=== PATIENT | female | born 1955 | race Caucasian/White ===

== ENCOUNTER 2016-06-15 07:00 | Inpatient (IN) | payer OTHER ==
[~2016-06-15] VITALS: Ht 315 cm; Wt 63.1 kg
--- NOTE | 2016-10-05 10:11 | RADRPT ---
Vent Rate: 49 bpm RR Interval: 0 msec CO Interval: 144 msec QRS Duration: 84 msec QT Interval: 478 msec QTC Interval: 431 msec P-R-T Funk: 51 - -27 - 50 degrees Marked sinus bradycardia Abnormal ECG Electronically Signed By: Domenic Marina [id number]
[2016-10-11 11:59] VITALS: BMI 25.5
[2016-10-12] VITALS (29 sets, daily range): BP systolic 85–145; BP diastolic 44–68; PULSE 46–62; RESP 10–29; BMI 23.9
[2016-10-12] MEDS ORDERED: SOD CHLORIDE 0.9% IV SCH (07:00)
[2016-10-12] MEDS ORDERED: EXPAREL NOTE (BUPIVICAINE LIPOSOMAL) XX SCH (07:00)
[2016-10-12] MEDS ORDERED: TRANEXAMIC ACID IV SCH (07:00)
[2016-10-12] MEDS ORDERED: CEFAZOLIN 1 GM INJ ONE (07:00)
[2016-10-12] MEDS ORDERED: SOD CHLORIDE 0.9% IVPB SCH (07:00)
[2016-10-12] MEDS ORDERED: BUPIVACAINE LIPOSOME/PF 266 MG/20 ML VIAL INFIL SCH (07:00)
[2016-10-12] MEDS ORDERED: TRANEXAMIC ACID IVPB SCH (07:00)
[2016-10-12] MEDS ORDERED: PAIN COCKTAIL-CEFUROXIME IRR SCH ×7 (07:00)
[2016-10-12] MEDS ORDERED: PREGABALIN 300 MG PO X1 PO SCH (07:00)
[2016-10-12] MEDS ORDERED: LACTATED RINGER'S 1,000 ML IV SCH (07:00)
[2016-10-12] MEDS ORDERED: CEFAZOLIN 2GM/50 ML (PMX) 50 ML X1 BEFORE INCISION IVPB SCH (07:00)
[2016-10-12] MEDS ORDERED: CELECOXIB 400 MG PO X1 DOSE PO SCH (07:00)
[2016-10-12] MEDS ORDERED: SPIR25TA76 PO (07:21)
[2016-10-12] MEDS ORDERED: PROP10TA6 PO (07:23)
[2016-10-12] MEDS ORDERED: ACET-141 PO (07:24)
[2016-10-12] MEDS ORDERED: FENTAnyl 50 MCG/ML VIAL ONE (08:31)
[2016-10-12] MEDS ORDERED: ROCURONIUM 50 MG INJ ONE (08:31)
[2016-10-12] MEDS ORDERED: PROPOFOL 100 ML ONE (08:31)
[2016-10-12] MEDS ORDERED: MIDAZOLAM 1 MG/ML 2 ML INJ ONE (08:31)
[2016-10-12] MEDS ORDERED: GLYCOPYRROLATE 1 MG INJ ONE (08:31)
[2016-10-12] MEDS ORDERED: LIDOCAINE 100 MG SYRINGE ONE (08:31)
[2016-10-12] MEDS ORDERED: NEOSTIGMINE 3 MG/3 ML SYRINGE ONE (08:31)
[2016-10-12] MEDS ORDERED: ONDANSETRON 4 MG INJ ONE (08:32)
[2016-10-12] MEDS ORDERED: DEXAMETHASONE 4 MG/ML 1 ML INJ ONE (08:32)
[2016-10-12] MEDS ORDERED: BACITRACIN 50000 UNITS INJ ONE (09:41)
[2016-10-12] MEDS ORDERED: SODIUM CL BACTERIOSTATIC 30 ML INJ ONE (09:55)
[2016-10-12] MEDS ORDERED: HEPARIN 1000 UNITS/ML 10 ML INJ ONE (09:55)
[2016-10-12] MEDS ORDERED: POLYMYXIN B 500000 UNIT INJ ONE (09:56)
[2016-10-12] MEDS ORDERED: VANCOMYCIN 1 GM INJ ONE (10:02)
[2016-10-12] MEDS: traMADOL 50 MG TAB X 1 DOSE PO SCH ×2 (10:08→14:53)
[2016-10-12] MEDS: oxyCODONE (CR) 10 MG TAB [oxyCONTIN] X1 DOSE PO SCH ×2 (10:08→14:52)
[2016-10-12] MEDS ORDERED: METOCLOPRAMIDE 10 MG INJ ONE (10:35)
[2016-10-12] MEDS ORDERED: MIDAZOLAM 1 MG/ML 2 ML INJ IV PRN (12:00)
[2016-10-12] MEDS ORDERED: FENTAnyl 50 MCG/ML VIAL IV PRN ×3 (12:00)
[2016-10-12] MEDS ORDERED: TRIMETHOBENZAMIDE 100 MG/ML VIAL IM PRN (12:00)
[2016-10-12] MEDS ORDERED: hydrALAzine 20 MG INJ IV PRN (12:00)
[2016-10-12] MEDS ORDERED: MEPERIDINE 25 MG INJ IV PRN (12:00)
[2016-10-12] MEDS ORDERED: DIPHENHYDRAMINE 50 MG INJ IV PRN (12:00)
[2016-10-12] MEDS ORDERED: HYDROmorphONE (0.2 MG/ML) 10ML SYG IV PRN ×3 (12:00)
[2016-10-12] MEDS ORDERED: LABETALOL HCL 20MG INJ IV PRN (12:00)
[2016-10-12] MEDS ORDERED: ONDANSETRON 4 MG INJ IV PRN (12:00)
[2016-10-12] MEDS ORDERED: EPHEDrine SULFATE 50 MG/5 ML SYG IV PRN (12:00)
--- NOTE | 2016-10-12 13:00 | RADRPT ---
PROCEDURE: Intraoperative imaging of the right hip with fluoroscopy. CLINICAL INDICATION: Right hip pain. Intraoperative. TECHNIQUE: 13 images of the right hip were obtained in the operating room with an image intensifie r. No radiologist was in attendance. 0.8 minutes of fluoroscopy time was used. COMPARISON: 10/04/2016. FINDINGS: Images demonstrate placement of a total right hip arthroplasty. IMPRESSION: 1. Satisfactory intraoperative imaging of the right hip. RPTAT: QQ .Klaus Gould MD, MD Date Time Electronically viewed and signed by .Klaus Gould MD, MD on 10/12/2016 13:00 .R/
--- NOTE | 2016-10-12 13:42 | OPPN ---
Date/Time of Note Date/Time of Note DATE: 10/12/16 TIME: 13:40 Operative/Procedure Note Dictation # [id number] Pre-Operative Diagnosis Right Hip OA Post-Operative Diagnosis Same Procedure Right Anterior GEOVANNY Surgeon: KY BENTON MD Chlorine Cell Tender: BERNARDO BOWLES PA-C Anesthesiologist: Mikal Hinton M.D. Findings Severe OA Blood Usage/Administration 200 cc autologous cell saver blood Implants/Grafts Depuy GEOVANNY Estimated blood loss: other Drains Hemovac x 1 Specimens Femoral Head Complications: None Anesthesia type: spinal KY BENTON MD Oct 12, 2016 13:42
[2016-10-12 13:59] LABS: ADD UMIC YES; URINE BILIRUBIN (Dip) NEGATIVE (NEGATIVE); URINE BLOOD (Dip) NEGATIVE (NEGATIVE); URINE COLOR LT. YELLOW (YELLOW); URINE GLUCOSE (Dip) NEGATIVE (NEGATIVE); URINE KETONES (Dip) NEGATIVE (NEGATIVE); URINE LEUKOCYTE ESTERASE (Dip) TRACE (NEGATIVE); URINE NITRITE (Dip) NEGATIVE (NEGATIVE); URINE TOTAL PROTEIN (Dip) NEGATIVE (NEGATIVE); URINE UROBILINOGEN (Dip) 0.2 E.U./dL (0.1-1.0)
[2016-10-12] MEDS ORDERED: HYDROmorphONE 1 MG/ML SYG IV PRN (14:00)
[2016-10-12] MEDS ORDERED: NA PHOSPHATE/BIPHOS 133 ML ENEMA PR PRN (14:00)
[2016-10-12] MEDS ORDERED: DIPHENHYDRAMINE 25 MG CAP PO PRN (14:00)
[2016-10-12] MEDS ORDERED: oxyCODONE 5 MG TAB PO PRN (14:00)
[2016-10-12] MEDS ORDERED: NACL 0.9% 3 ML SYG IV SCH (14:00)
[2016-10-12] MEDS ORDERED: MAGNESIUM HYDROXIDE 30ML CUP PO PRN (14:00)
[2016-10-12] MEDS ORDERED: BISACODYL 10 MG SUPP PR PRN (14:00)
--- NOTE | 2016-10-12 14:04 | PN ---
Date/Time of Note Date/Time of Note DATE: 10/12/16 TIME: 14:01 Assessment/Plan Lines/Catheters IV Catheter Type (from Nrsg): Peripheral IV Assessment/Plan Assessment/Plan Stable in PACU, s/p right anterior GEOVANNY -admit to ICU for closer monitoring secondary to blood loss -cont abx -hold ASA d/t h/o thrombocytopenia -avoid all NSAIDs and tylenol -SCDs -daily labs including CBC -OOB with PT -monitor drain closely -Dr. Danielson notified -remove mejia POD #1 XR of the right hip is pending at this time Subjective 24 Hr Interval Summary Doing well in PACU. Denies any pain. Moving all extremities. Exam/Review of Systems Vital Signs Vitals Vital Signs Date Time Temp Pulse Resp B/P Pulse Ox O2 Delivery O2 Flow Rate FiO2 10/12/16 13:48 97.9 10/12/16 07:20 56 19 127/62 100 Exam Free Text/Dictation Dressing dry Incision clean, dry, and intact without redness or drainage 5/5 Quadriceps, Tibialis Anterior, EHL, Gastroc, Soleus, Peroneals Normal sensation Palpable DT/PT, CR <2 sec No distal edema BERNARDO BOWLES PA-C Oct 12, 2016 14:04
[2016-10-12 14:06] LABS: HEMATOCRIT 35.5 % (37.0-47.0); HEMOGLOBIN 12.1 g/dl (12.0-16.0); MEAN CORPUSCULAR HEMOGLOBIN 35.5 pg (29.0-33.0); MEAN CORPUSCULAR HGB CONC 34.1 g/dl (32.0-37.0); MEAN CORPUSCULAR VOLUME 104.1 fl (82.0-101.0); MEAN PLATELET VOLUME 7.9 fl (7.4-10.4); RED BLOOD COUNT 3.41 10^6/ul (4.20-5.40); RED CELL DISTRIBUTION WIDTH 13.8 % (11.5-14.5)
[2016-10-12 14:08] LABS: POTASSIUM 4.7 mmol/L (3.5-5.1)
--- NOTE | 2016-10-12 14:09 | OPR ---
DATE OF OPERATION: 10/12/2016 DATE: 10/12/2016 PREOPERATIVE DIAGNOSIS: Right hip osteoarthritis. POSTOPERATIVE DIAGNOSIS: Right hip osteoarthritis. OPERATION PERFORMED: Right anterior total hip arthroplasty. SURGEON: Ky Hinson MD TOP ICER: FERNIE Simpson COMPONENTS USED: DePuy size 50 mm Gription [place] cup, 50/32 neutral AltrX polyethylene liner, one 6.5 mm screw, size 10 standard Corail stem, 32+5 ceramic head. ANESTHESIA: Spinal plus sedation plus periarticular injection. ANESTHESIOLOGIST: Dr. Hinton ESTIMATED BLOOD LOSS: 600 mL INTRAVENOUS FLUIDS: Crystalloid 2 L plus 200 mL of autologous CellSaver blood. SPECIMENS: Femoral head. DRAINS: Hemovac x1 COMPLICATIONS: None. DISPOSITION: The patient tolerated the procedure well and was taken to the recovery room in stable condition. INDICATIONS: The patient is a 61-year-old woman who has had worsening pain in the right hip with radiographic appearance of severe osteoarthritis, who then developed a chronic femoral neck fracture with shortening and impaction. I felt the patient would benefit from a total hip arthroplasty through an anterior approach. The risks, benefits, and alternatives of the procedure were explained in detail to the patient. I explained the risks of the surgery to include, but not be limited to: bleeding and possible need for blood transfusion; infection; pain; stiffness; neurovascular injury with possible numbness, weakness, and/or paralysis anywhere from the hip down to the toes; fracture; instability; dislocation; leg length inequality; wear and/or loosening of the prosthesis and possible need for future revision; blood clots; pulmonary embolism; and anesthetic complications such as heart attack, stroke, GI bleed, pneumonia, and/ or . Ample time was allowed for the patient to ask questions, all of which were addressed and answered. The patient understood the risks involved and wished to proceed. Informed consent was signed prior to the procedure. PROCEDURE: The patient's right hip was initialed with a marking pen in the preoperative area to identify the correct operative site. The patient was brought to the operating room and transferred from the [facility] to the [facility] where a spinal anesthetic was administered. The patient was then anesthetized and intubated. A Dozier catheter was placed. Both feet were placed into well-padded boots which were then placed into the leg holders of the traction booms. A timeout was performed to confirm that the right side was the correct operative site. The patient was given 2 g of intravenous Ancef within one hour prior to the procedure. The operative hip was prepped and draped in the usual sterile fashion. A 10 cm oblique incision was made over the anterior aspect of the hip and carried down through subcutaneous tissue and fat with sharp dissection. The tensor fascia peace was incised along the length of the wound. The tensor fascia muscle was retracted laterally and the sartorius medially. The anterior circumflex vessels were identified and tied off with 2-0 silk suture and coagulated with the Tissue Link parachute/combatant diver officer. The rectus femoris was elevated off the anterior capsule and an anterior capsulectomy performed. A femoral neck osteotomy was made and the head removed from the acetabulum. The acetabulum was denuded of cartilage circumferentially, as was the femoral head. Retractors were placed around the acetabulum. The remnants of the labrum and ligamentum teres were excised. I reamed the acetabulum to the medial wall and then went into an anatomic position and increased the reamer size in 2 mm increments until I got a good bite and was down to bleeding subchondral bone. The [place] cup was opened and impacted into the acetabulum and sat flush circumferentially, getting a good bite. C-arm imaging showed it had about 40 to 45 degrees of abduction and 20 degrees of anteversion. One acetabular screw was placed. The real liner was opened and impacted into the acetabulum and sat flush circumferentially. Attention was turned towards the femur. The operative leg was carefully lowered to the floor with the leg adducted. The foot was then externally rotated to approximately 110 degrees. A posteromedial release was performed to optimize exposure. The femoral hook was placed underneath the proximal femur and the hydraulic lift was then used to elevate the femur up out of the wound. The cookie cutter osteotome was used to remove the remaining overhanging greater trochanter. The femur was then broached, going up in one size increments until it sat flush with the neck cut and a stable fit was achieved. The trial neck and head were assembled and reduced into the acetabulum. Fluoroscopic imaging showed the components to be in good position and the leg lengths and offsets to be equal. At this point, the trial was dislocated and the trial broach removed. The canal was irrigated and dried. The real stem was opened and impacted into the femur. The trunnion was irrigated and dried, and the real femoral head was impacted onto the trunnion, and reduced into the acetabulum. The soft tissues were infiltrated with a mixture of 150 mg of 0.5% Bupivacaine, 8 mg of Duramorph, 300 mcg of epinephrine, 30 mg of Toradol, 100 mcg of clonidine, 750 mg of cefuroxime and 86 mL of normal saline, followed by an injection of 266 mg of liposomal Bupivacaine. At this point the hip was irrigated with a mixture of betadine/saline and then antibiotic saline with pulsatile lavage. A Hemovac drain was placed in the deep portion of the wound and brought out the anterolateral thigh. There was good hemostasis. The tensor fascia peace was repaired with a running #1 Vicryl. The deep fat layer was irrigated and closed with 2-0 Stratafix and the subcutaneous layer closed with 3 -0 Stratafix and the skin was sealed with Prineo Dermabond. The drain was secured with 3-0 nylon. Dictated By: KY TURK/NORIS Conf#: [id number] DID#: [id number] MTDD
[2016-10-12 14:11] LABS: BACTERIA,URINE FEW; URINE RBCS 0-2 /HPF (0)
[2016-10-12 14:13] LABS: CREATININE 0.81 mg/dl (0.44-1.00)
[2016-10-12 14:20] LABS: CONDITION 1; LH ANALYZER COMMENTS 1
--- NOTE | 2016-10-12 14:33 | RADRPT ---
PROCEDURE: XR Hip. CLINICAL INDICATION: Status post right hip prosthesis. Postop. Follow-up TECHNIQUE: Single AP view of the right hip was performed. COMPARISON: None. FINDINGS: Right hip prosthesis is identified. Alignment is anatomic. No fracture or loosening or hardware fa ilure is seen. Postsurgical changes are identified. Gas is seen within the joint space and surroun ding soft tissues, as expected. Post surgical drain is seen in place as well. IMPRESSION: 1. Satisfactory postop appearances, status post right hip prosthesis placement, in anatomic alignme nt. RPTAT: HMJB .Dileep Benitez MD, Date Time Electronically viewed and signed by .Dileep Benitez MD, on 10/12/2016 14:32 .B/
--- NOTE | 2016-10-12 14:34 | RADRPT ---
PROCEDURE: XR Pelvis. CLINICAL INDICATION: Postop right hip arthroplasty. TECHNIQUE: Single AP view of the pelvis. COMPARISON: No prior studies are available for comparison. FINDINGS: Right hip arthroplasty is identified. Alignment is anatomic. No fracture or loosening or other acu te abnormality is seen. There is no evidence for hardware failure. Postsurgical changes are seen in the soft tissues around the right hip joint space. Subcutaneous gas is identified, as expected. S urgical drain is seen in place within the right hip. IMPRESSION: 1. Satisfactory postop appearances, status post right hip arthroplasty in anatomic alignment. RPTAT: HMJB .Dileep Benitez MD, MD Date Time Electronically viewed and signed by .Dileep Benitez MD, on 10/12/2016 14:33 .B/
[2016-10-12 14:36] LABS: EOSINOPHILS # 0.1 10^3/ul (0.0-0.5); LYMPHOCYTES # 0.3 10^3/ul (0.8-2.9); MONOCYTE # 0.1 10^3/ul (0.3-0.9)
[2016-10-12 14:37] LABS: PLATELET ESTIMATE PLT APPEAR DECREASED
[2016-10-12 14:38] LABS: PLATELET COUNT 69 10^3/UL (140-440)
[2016-10-12] MEDS ORDERED: CEFAZOLIN 2 GM/50 ML (PMX) 50 ML IVPB ONE (14:42)
[2016-10-12 14:49] LABS: NEUTROPHIL # 6.6 10^3/ul (1.6-7.5)
--- NOTE | 2016-10-12 14:56 | CONS ---
DATE OF ADMISSION: 10/12/2016 DATE OF CONSULTATION: 10/12/2016 PHYSICIAN REQUESTING CONSULT: Jv Hinson MD REASON FOR CONSULTATION: Medical management during the course of hospitalization. 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 The patient agreed to proceed with surgical intervention after discussing the mode of the tr eatment and discussing the risks and benefits of the surgery and patient was admitted to [facility] on 10/12/2016. After signing consent, was taken to OR and under general endotrac heal intubation, patient had right total hip arthroplasty from an anterior approach. The patient to lerated the procedure well and was taken to recovery room in stable condition. At this time, patien t denies having any chest pain, shortness of breath, nausea, vomiting, diarrhea. No headache, dizzi ness, lightheadedness. No change in visual acuity, diplopia, photophobia. Postoperatively, patient was found to be thrombocytopenic and was transfused 1 unit of platelets. She denies any shortness of breath post-transfusion. She denies any palpitations, edema. The patient denies any history of GI bleed. No dysuria, hematuria, urgency, incontinence, or any other discomfort. PAST MEDICAL AND SURGICAL HISTORY: As above per HPI. 1. Cirrhosis. 2. History of hepatitis C, status post treatment with Harvoni. At this time, serology test showed successful treatment, esophageal varices, osteoarthritis, thrombocytopenia, anemia. MEDICATIONS: 1. Spironolactone 25 mg 2. Propranolol 10 mg b.i.d. ALLERGIES: NO KNOWN DRUG ALLERGIES. SOCIAL HISTORY: The patient is a former smoker, 10 to 15 cigarettes per day x30 days 30 years , in remission for the past 2 years. History of alcohol dependency in remission 2-1/2 years ago and has been sober. History of drug use, cocaine, has been sober and clean for the past 2 years. FAMILY HISTORY: Noncontributory. REVIEW OF SYSTEMS: As above per HPI, otherwise 12 review of systems has been found to be negative. PHYSICAL EXAMINATION: VITAL SIGNS: Temperature 97.9, pulse 56, respirations 19, blood pressure 127/62, oxygen saturation 100% on room air. GENERAL APPEARANCE: The patient is lying in bed comfortably without any distress. She is awake, al ert, oriented. She is able to answer my questions properly. EYES AND ENT: Conjunctivae and lids are normal. Pupils are normal. Extraocular normal. Hearing g rossly normal. Lips and gums are normal. Oral mucosa is mildly dry. NECK: Supple. Trachea is midline. No lymphadenopathy. RESPIRATORY: Effort is normal. Clear to auscultation bilaterally. CARDIOVASCULAR: Normal S1, S2. Regular rhythm and rate. No murmur, no bruits, no edema. Peripher al pulses, radial pulses palpable. Capillary refill is normal. CHEST: Normal expansion of thorax during inspiration. GASTROINTESTINAL: Abdomen is soft, nontender, not distended. Bowel sounds are present. No guardin g, no rebound. GENITOURINARY: Deferred. MUSCULOSKELETAL: Upper extremities within normal limits. Left lower extremity within normal limits . Right lower extremity, patient is postoperatively, surgical site is dry and clean. The drain is intact NEUROLOGIC: Cranial nerves II through XII are grossly intact. PSYCHIATRIC: Normal judgment and insight. Alert and oriented x3. Mood and affect normal. LABORATORY WORK AND IMAGING: WBC 4.2, hemoglobin 14.3, hematocrit 42.5, MCV 100, platelets 88. Sod ium 142, potassium 4.4, chloride 104, bicarbonate 22, BUN 24, creatinine 1.07, glucose 114. INR 1.1 . ASSESSMENT AND PLAN: 1. Right hip osteoarthritis. The patient is status post right total hip arthroplasty, anterior benedict mata by Dr. Hinson. At this time, we will withhold any anticoagulation or antiplatelet secondary t o patient's history of thrombocytopenia. Continue pain medication. PT, OT evaluate and treat. Con tinue postsurgical care. 2. History of thrombocytopenia. This is likely secondary to history of cirrhosis. The patient is status post transfusion 1 unit of platelets. We will continue to monitor. 3. Bradycardia. This is likely secondary to propranolol. We will place parameters to be held hear t rate is less than 55. 4. History of esophageal varices. Continue medical management. 5. History of hepatitis C, status post Harvoni treatment, the viral load is undetectable. 6. Anemia. We will continue to monitor patient's CBC and transfuse if hemoglobin is less than 7.5. 7. Deep venous thrombosis prophylaxis. At this time will place the patient on SCD. Followup with orthopedic surgeon's recommendation regarding pharmacology DVT prophylaxis. 8. For gastrointestinal prophylaxis, we will place the patient on Zantac. 9. We will continue to monitor the patient closely. Further recommendations, management and treatm ent as per clinical course. At this time, the patient will be admitted to ICU for 24-hour observati on and then may be transferred to medical/surgical for further evaluation and treatment. Dictated By: SHABBIR JIMENEZ MD PN/NTS Conf#: [id number] DID#: [id number]
[2016-10-12] MEDS: SPIRONOLACTONE 25 MG TAB PO SCH (16:55)
[2016-10-12] MEDS ORDERED: PANTOPRAZOLE (EC) 40 MG TAB PO SCH (18:00)
[2016-10-12] MEDS ORDERED: CEFAZOLIN 2 GM/50 ML (PMX) 50 ML IVPB SCH (18:00)
[2016-10-12] MEDS: LACTATED RINGER'S 1,000 ML IV SCH ×2 (18:39→22:59)
[2016-10-12] MEDS: traMADol 50 MG TAB PO SCH (18:39)
[2016-10-12 18:40] LABS: HEMATOCRIT 34.7 % (37.0-47.0); HEMOGLOBIN 11.8 g/dl (12.0-16.0); LYMPHOCYTES # 0.5 10^3/ul (0.8-2.9); LYMPHOCYTES % 6.8 % (15.0-51.0); MEAN CORPUSCULAR HEMOGLOBIN 35.2 pg (29.0-33.0); MEAN CORPUSCULAR VOLUME 103.6 fl (82.0-101.0); MEAN PLATELET VOLUME 7.8 fl (7.4-10.4); MONOCYTE # 0.2 10^3/ul (0.3-0.9); MONOCYTES % 2.7 % (0.0-11.0); NEUTROPHIL # 6.4 10^3/ul (1.6-7.5); NEUTROPHILS % 90.5 % (39.0-77.0); PLATELET COUNT 76 10^3/UL (140-440); RED BLOOD COUNT 3.35 10^6/ul (4.20-5.40); UNCORRECTED WBC 7.1 10^3/ul (4.8-10.8); WHITE BLOOD COUNT 7.1 10^3/ul (4.8-10.8)
[2016-10-12 18:43] LABS: CONDITION 1; LH ANALYZER COMMENTS 1
[2016-10-12 19:08] LABS: PLATELET ESTIMATE PLT APPEAR DECREASED
[2016-10-12] MEDS: PROPRANOLOL 10 MG TAB PO SCH (21:00)
[2016-10-12] MEDS: DOCUSATE SODIUM 100 MG CAP PO SCH (21:15)
[2016-10-12] MEDS: RANITIDINE 150 MG TAB PO SCH (21:16)
[2016-10-12] MEDS: PREGABALIN 25 MG CAP PO SCH (21:48)
[2016-10-12] MEDS: CEFAZOLIN 2 GM/50 ML (PMX) 50 ML IVPB SCH (22:58)
[2016-10-13] VITALS (11 sets, daily range): BP systolic 91–110; BP diastolic 42–55; PULSE 52–62; RESP 10–24; Ht 315 cm; Wt 63.1 kg
[2016-10-13] MEDS: traMADol 50 MG TAB PO SCH ×5 (04:26→20:23)
[2016-10-13 06:19] LABS: CALCIUM 8.4 mg/dl (8.4-10.2); CREATININE 0.9 mg/dl (0.44-1.00); POTASSIUM 5.1 mmol/L (3.5-5.1)
[2016-10-13 06:42] LABS: BASOPHILS % 0.1 % (0.0-2.0); HEMATOCRIT 28.2 % (37.0-47.0); HEMOGLOBIN 9.7 g/dl (12.0-16.0); LYMPHOCYTES # 0.4 10^3/ul (0.8-2.9); LYMPHOCYTES % 6.5 % (15.0-51.0); MEAN CORPUSCULAR HEMOGLOBIN 35.8 pg (29.0-33.0); MEAN CORPUSCULAR HGB CONC 34.4 g/dl (32.0-37.0); MEAN CORPUSCULAR VOLUME 104.2 fl (82.0-101.0); MEAN PLATELET VOLUME 8.1 fl (7.4-10.4); MONOCYTE # 0.3 10^3/ul (0.3-0.9); MONOCYTES % 4.3 % (0.0-11.0); NEUTROPHILS % 89.1 % (39.0-77.0); PLATELET COUNT 80 10^3/UL (140-440); RED BLOOD COUNT 2.71 10^6/ul (4.20-5.40); UNCORRECTED WBC 6.7 10^3/ul (4.8-10.8); WHITE BLOOD COUNT 6.7 10^3/ul (4.8-10.8)
[2016-10-13 06:49] LABS: CONDITION 1; LH ANALYZER COMMENTS 1
--- NOTE | 2016-10-13 08:40 | PN ---
Date/Time of Note Date/Time of Note DATE: 10/13/16 TIME: 08:37 Assessment/Plan Lines/Catheters IV Catheter Type (from Nrsg): Peripheral IV Dozier in Place (from Nrsg): Yes Assessment/Plan Assessment/Plan POD # 1. Stable. -Continue drain given large output -Observe h/h and platelets for now. Recheck CBC this afternoon -Transfer to if ok with Dr. Emily VERA with PT -Pain meds -SCDs only for DVT prophylaxis. Given thrombocytopenia, patient is at high bleeding risk and will avoid anticoagulants -ABX until drain removed Subjective 24 Hr Interval Summary Resting comfortably. No pain. In PACU overnight because no ICU beds available. Has been stable throughout the night. Exam/Review of Systems Vital Signs Vitals Vital Signs Date Time Temp Pulse Resp B/P Pulse Ox O2 Delivery O2 Flow Rate FiO2 10/13/16 03:57 56 22 103/52 95 Room Air 10/12/16 23:36 2.0 10/12/16 21:36 98.0 Intake and Output 10/12/16 10/12/16 10/13/16 15:00 23:00 07:00 Intake Total 2700 ml 280 ml 120 ml Output Total 1650 ml 680 ml 800 ml Balance 1050 ml -400 ml -680 ml Exam Free Text/Dictation Hemovac: 600 cc Dressing dry Thigh soft 5/5 Quadriceps, Tibialis Anterior, EHL, Gastroc Soleus, Peroneals Normal sensation Palpable DP/PT, CR < 2 Sec No distal edema XRAYS: Right GEOVANNY well aligned and located in acetabulum. Results Result Diagram: 10/13/16 0523 10/13/16 0523 KY BENTON MD Oct 13, 2016 08:40
[2016-10-13] MEDS: CEFAZOLIN 2 GM/50 ML (PMX) 50 ML IVPB SCH ×3 (08:46→23:13)
[2016-10-13] MEDS: PROPRANOLOL 10 MG TAB PO SCH ×2 (08:51→21:00)
[2016-10-13] MEDS: DOCUSATE SODIUM 100 MG CAP PO SCH ×2 (08:52→21:42)
[2016-10-13] MEDS: SPIRONOLACTONE 25 MG TAB PO SCH ×2 (08:52→21:42)
[2016-10-13] MEDS: RANITIDINE 150 MG TAB PO SCH ×2 (08:52→21:42)
--- NOTE | 2016-10-13 12:02 | PN ---
Date/Time of Note Date/Time of Note DATE: 10/13/16 TIME: 11:59 Assessment/Plan VTE Prophylaxis VTE Prophylaxis Intervention: SCD's Lines/Catheters IV Catheter Type (from Nrs): Peripheral IV Urinary Cath still in place: Yes Reason Cath still needed: other (indicate) Assessment/Plan Chief Complaint/Hosp Course ASSESSMENT AND PLAN: 1. Right hip osteoarthritis. status post right total hip arthroplasty, anterior approach, continue to withhold any anticoagulation or antiplatelet secondary to patient's history of thrombocytopenia. Continue pain medication. PT, OT evaluate and treat. Continue postsurgical care. 2. History of thrombocytopenia. This is likely secondary to history of cirrhosis. The patient is status post transfusion 2 unit of platelets. We will continue to monitor. 3. Bradycardia. Cardiology has been consulted, this is likely secondary to propranolol. We will place parameters to be held heart rate is less than 55. 4. History of esophageal varices. Continue medical management. 5. History of hepatitis C, status post Harvoni treatment, the viral load is undetectable. 6. Anemia. We will continue to monitor patient's CBC and transfuse if hemoglobin is less than 7.5. 7. Deep venous thrombosis prophylaxis. At this time will place the patient on SCD. Followup with orthopedic surgeon's recommendation regarding pharmacology DVT prophylaxis. 8. For gastrointestinal prophylaxis, continue Zantac. We will continue to monitor the patient closely. Further recommendations, management and treatment as per clinical course. Problems: Subjective 24 Hr Interval Summary Free Text/Dictation Patient denies of any chest pain or shortness of breath Denies of any abdominal discomfort Tolerating oral intake Exam/Review of Systems Vital Signs Vitals Vital Signs Date Time Temp Pulse Resp B/P Pulse Ox O2 Delivery O2 Flow Rate FiO2 10/13/16 10:30 98.2 59 20 107/53 100 Nasal Cannula 2.0 Intake and Output 10/12/16 10/12/16 10/13/16 15:00 23:00 07:00 Intake Total 2700 ml 280 ml 120 ml Output Total 1650 ml 680 ml 800 ml Balance 1050 ml -400 ml -680 ml Exam General: The patient is well-developed, Not in acute distress. HEENT: Atraumatic, normocephalic. The pupils are equal and round . Neck: Supple with full range of motion. Chest: Normal expansion of the thorax during inspiration Lungs: Clear to auscultation bilaterally Heart: Normal S1-S2, Regular rhythm and rate. Abdomen: Soft , nontender, nondistended , bowel sounds are present. Extremities: Normal to inspection, no edema no cyanosis, surgical site the right hip is dry and clean, drain is intact Neurologic: Normal mental status,The patient is awake, alert and oriented . Results Result Diagram: 10/13/16 0523 10/13/16 0523 Results 24 hrs Laboratory Tests Test 10/12/16 13:30 10/12/16 13:50 10/12/16 18:25 10/13/16 05:23 Urine Bacteria FEW Urine Bilirubin NEGATIVE Urine Clarity CLEAR Urine Color LT. YELLOW Urine Epithelial Cells FEW Urine Glucose NEGATIVE Urine Hemoglobin NEGATIVE Urine Ketones NEGATIVE Urine Leukocyte Esterase TRACE H Urine Microscopic RBC 0-2 Urine Microscopic WBC 2-5 Urine Nitrite NEGATIVE Urine Specific [place] <=1.005 L Urine Total Protein NEGATIVE Urine Urobilinogen 0.2 E.U./dL Urine pH 7.0 Anion Gap 12 15 Basophils # 0.0 0.0 Basophils % 0.0 0.1 Blood Morphology Comment Blood Urea Nitrogen 15 19 Calcium Level 8.0 L 8.4 Carbon Dioxide Level 18 L 21 Chloride Level 118 H 113 H Creatinine 0.81 0.90 Differential Comment MANUAL DIFF Eosinophils # 0.1 0.0 0.0 Eosinophils % 1.0 0.0 0.0 Glucose Level 90 112 Hematocrit 35.5 L 34.7 L 28.2 L Hemoglobin 12.1 11.8 L 9.7 L Lymphocytes # 0.3 L 0.5 L 0.4 L Lymphocytes % 4.0 L 6.8 L 6.5 L Mean Corpuscular Hemoglobin 35.5 H 35.2 H 35.8 H Mean Corpuscular Hemoglobin Concent 34.1 34.0 34.4 Mean Corpuscular Volume 104.1 H 103.6 H 104.2 H Mean Platelet Volume 7.9 7.8 8.1 Monocytes # 0.1 L 0.2 L 0.3 Monocytes % 1.0 2.7 4.3 Neutrophils # 6.6 6.4 6.0 Neutrophils % 94.0 H 90.5 H 89.1 H Nucleated Red Blood Cells # 0.0 0.0 Nucleated Red Blood Cells % 0.0 0.0 Platelet Count 69 L 76 L 80 L Platelet Estimate PLT APPEAR DECREASED PLT APPEAR DECREASED Potassium Level 4.7 5.1 Red Blood Count 3.41 L 3.35 L 2.71 L Red Cell Distribution Width 13.8 14.0 14.0 Sodium Level 143 144 White Blood Count 7.0 7.1 6.7 Medications Medications Current Medications Miscellaneous Information 1 ea NOTE XX ; Start 10/12/16 at 07:00; Stop 10/16/16 at 06:59 Propranolol HCl (Inderal) 10 mg BID PO ; Start 10/12/16 at 21:00 Spironolactone 25 mg 25 mg BID PO Last administered on 10/13/16at 08:52; Admin Dose 25 MG; Start 10/12/16 at 21:00 Lactated Ringer's (Lr) 1,000 ml @ 125 mls/hr Q8H IV Last administered on 10/12at 22:59; Admin Dose 125 MLS/HR; Start 10/12/16 at 13:38 Tramadol HCl (Ultram) 50 mg Q6 PO Last administered on 10/13/16at 04:26; Admin Dose 50 MG; Start 10/12/16 at 18:00; Stop 10/15/16 at 17:59 Oxycodone HCl (Roxicodone) 5 mg Q4H PRN PO PAIN LEVEL 1-3; Start 10/12/16 at 14:00 Oxycodone HCl (Roxicodone) 10 mg Q4H PRN PO PAIN LEVEL 4-7; Start 10/12/16 at 14:00 Hydromorphone HCl (Dilaudid) 1 mg Q3H PRN IV PAIN LEVEL 8-10; Start 10/12/16 at 14:00 Ondansetron HCl (Zofran Inj) 4 mg Q6H PRN IV NAUSEA AND/OR VOMITING; Start at 14:00 Bisacodyl (Dulcolax Supp) 10 mg Q12H PRN [place] CONSTIPATION; Start 10/12/16 at 14 :00 Magnesium Hydroxide (Milk Of Mag) 30 ml BID PRN PO CONSTIPATION; Start at 14:00 Sodium Biphosphate/ Sodium Phosphate (Fleet Enema) 133 ml DAILY PRN [place] CONSTIPATION; Start 10/12/16 at 14:00 Docusate Sodium (Colace) 100 mg BID PO Last administered on 10/13/16at 08:52; Admin Dose 100 MG; Start 10/12/16 at 21:00 Diphenhydramine HCl (Benadryl) 25 mg Q6H PRN PO PRURITUS; Start 10/12/16 at 14 :00 Pregabalin (Lyrica) 50 mg BID PO Last administered on 10/12/16at 21:48; Admin Dose 50 MG; Start 10/12/16 at 21:00 Ranitidine HCl 150 mg 150 mg BID PO Last administered on 10/13/16at 08:52; Admin Dose 150 MG; Start 10/12/16 at 21:00 Cefazolin Sodium/ Dextrose (Ancef 2 Gm/50 ml (Pmx)) 50 ml @ 100 mls/hr Q8H IVPB Last administered on 10/13/16at 08:46; Admin Dose 100 MLS/HR; Start 10/12 at 23:00; Stop 10/14/16 at 07:29 SHABBIR JIMENEZ MD Oct 13, 2016 12:02
[2016-10-13] MEDS: LACTATED RINGER'S 1,000 ML IV SCH ×3 (12:25→18:22)
[2016-10-13] MEDS: PREGABALIN 25 MG CAP PO SCH ×2 (12:41→21:46)
[2016-10-13 16:34] LABS: HEMATOCRIT 27.4 % (37.0-47.0); HEMOGLOBIN 9.4 g/dl (12.0-16.0); LYMPHOCYTES # 0.4 10^3/ul (0.8-2.9); LYMPHOCYTES % 5.5 % (15.0-51.0); MEAN CORPUSCULAR HEMOGLOBIN 35.6 pg (29.0-33.0); MEAN CORPUSCULAR HGB CONC 34.2 g/dl (32.0-37.0); MEAN CORPUSCULAR VOLUME 103.9 fl (82.0-101.0); MEAN PLATELET VOLUME 7.4 fl (7.4-10.4); MONOCYTE # 0.4 10^3/ul (0.3-0.9); MONOCYTES % 4.9 % (0.0-11.0); NEUTROPHIL # 7.2 10^3/ul (1.6-7.5); NEUTROPHILS % 89.6 % (39.0-77.0); RED BLOOD COUNT 2.64 10^6/ul (4.20-5.40)
[2016-10-13 16:39] LABS: CONDITION 1; LH ANALYZER COMMENTS 1
[2016-10-13 16:41] LABS: PLATELET COUNT 72 10^3/UL (140-440)
--- NOTE | 2016-10-13 18:03 | CONS ---
DATE OF ADMISSION: 10/12/2016 DATE OF CONSULTATION: 10/13/2016 TYPE OF CONSULTATION: Cardiology. REASON FOR CONSULTATION: Palpitations and PVCs. REQUESTING PHYSICIAN: Dr. Jimenez from the hospitalist service. HISTORY OF PRESENT ILLNESS: Ms. Paredes is a 63-year-old female with history of liver cirrhosis, he patitis C, hypertension who presented for and underwent a right total hip arthroplasty for right hip severe degenerative joint disease. Postoperatively, the patient has had some bradycardia and some PACs and palpitations and thus cardiology consultation has been requested. The patient at this time denies chest pain, shortness of breath. PAST MEDICAL HISTORY: As above in HPI with the patient having a negative stress test June 2016 and a normal EF in June 2016 with diastolic dysfunction, trace mitral and trace tricuspid regu rgitation. MEDICATIONS CURRENTLY IN HOSPITAL: 1. Ancef. 2. Propranolol 10 mg p.o. b.i.d. 3. Aldactone 25 mg b.i.d. 4. Lyrica 50 mg b.i.d. 5. Zantac 150 mg b.i.d. 6. Ultram 50 mg q.6h. 7. IV fluid with Lactated Ringer's. ALLERGIES: NO KNOWN DRUG ALLERGIES. SOCIAL HISTORY: No tobacco, ETOH or illicit drug use. FAMILY HISTORY: No history of sudden cardiac or early CAD. REVIEW OF SYSTEMS: As above in HPI. CONSTITUTIONAL: No fevers, chills. PULMONARY: Shortness of breath. CARDIOVASCULAR: Bradycardia, palpitations, borderline hypotension. GASTROINTESTINAL: No vomiting. Positive history of cirrhosis. GENITOURINARY: No hematuria. MUSCULOSKELETAL: Hip severe osteoarthritis status post left total hip replacement. ENDOCRINE: No documented history of thyroid disease. PHYSICAL EXAMINATION: VITAL SIGNS: Temperature 98.2, blood pressure most recently 107/53, pulse respirations 20 ___ __ 2 liters. GENERAL: The patient is alert, awake, in no acute distress. NECK: JVP approximately 8 cm water. CHEST: Fair movement throughout with decreased breath sounds at bases bilaterally. HEART: Bradycardic, regular rhythm, normal S1, S2, I/ systolic murmur, nondisplaced PMI. ABDOMEN: Positive bowel sounds, soft. EXTREMITIES: No pitting edema, 1+ pulses bilaterally, posterior tibial. LABORATORY DATA: As above in HPI, with most recent from today, white count 8.0, hemoglobin 9.4, martín telet count of 72. Sodium 144, potassium 5.1, creatinine 0.9, BUN 19. UA negative. IMAGING STUDIES: As above in HPI with a hip x-ray from the revealing satisfactory postoperativ e period, status post right hip prosthesis placement and anatomic alignment. ECG: From today reveals sinus bradycardia, rate of 54 with normal axis, normal intervals, nonspecif ic ST and T abnormalities. IMPRESSION: 1. PACs by tele postop. 2. Palpitations secondary to #1. 3. Bradycardia. 4. Hypotension, borderline, likely due to the patient's baseline cirrhosis. 5. Postoperative status post hip replacement. 6. Liver cirrhosis. 7. Hepatitis C virus positivity. RECOMMENDATIONS: 1. At this time, would check serial EKGs to assess for any significant ongoing changes and check a troponin x1 to be sure the patient has not had any recent coronary syndromes in the setting of posto perative period lending to low blood pressures. 2. Continue the patient's propranolol as tolerated. 3. Check baseline TSH to ensure that subclinical hyperthyroidism is not continued bouts of PACs and hypothyroidism is not contributing bradycardia. 4. Pain control. 5. Check a fasting lipid panel for general risk stratification. 6. The patient continues to have significant bradycardia and/or cardiac arrhythmia they want to tra nsfer patient to telemetry for close monitoring. Thank you for allowing me to take part in the care of this patient and I will continue to follow flory green very closely with you. Further recommendations will be made as the patient progresses through [facility] inpatient hospital clinical course. Dictated By: SIERRA AYALA/NORIS Conf#: [id number] DID#: [id number] CC: SHABBIR JIMENEZ MD;*EndCC*
[2016-10-13 18:25] LABS: TROPONIN-I < 0.012 ng/ml (0.00-0.12)
[2016-10-13 18:38] LABS: THYROID STIMULATING HORMONE 0.311 MIU/L (0.465-4.680)
--- NOTE | 2016-10-13 19:06 | RADRPT ---
Vent Rate: 54 bpm RR Interval: 0 msec MA Interval: 152 msec QRS Duration: 86 msec QT Interval: 444 msec QTC Interval: 421 msec P-R-T [place]: 24 - -25 - 55 degrees Sinus bradycardia Otherwise normal ECG Electronically Signed By: Capo Priest [id number]
[2016-10-14 01:29] VITALS: BP 105/55; PULSE 59; RESP 18
[2016-10-14] MEDS: LACTATED RINGER'S 1,000 ML IV SCH ×3 (05:17→21:38)
[2016-10-14] MEDS: traMADol 50 MG TAB PO SCH ×3 (05:18→17:40)
[2016-10-14] MEDS: CEFAZOLIN 2 GM/50 ML (PMX) 50 ML IVPB SCH (05:18)
[2016-10-14 05:34] LABS: HEMATOCRIT 26.4 % (37.0-47.0); LYMPHOCYTES # 0.6 10^3/ul (0.8-2.9); LYMPHOCYTES % 9.4 % (15.0-51.0); MEAN CORPUSCULAR HEMOGLOBIN 35.4 pg (29.0-33.0); MEAN CORPUSCULAR VOLUME 104.1 fl (82.0-101.0); MEAN PLATELET VOLUME 8.2 fl (7.4-10.4); MONOCYTE # 0.4 10^3/ul (0.3-0.9); NEUTROPHILS % 83.6 % (39.0-77.0); PLATELET COUNT 63 10^3/UL (140-440); RED BLOOD COUNT 2.53 10^6/ul (4.20-5.40); RED CELL DISTRIBUTION WIDTH 14.3 % (11.5-14.5); UNCORRECTED WBC 5.9 10^3/ul (4.8-10.8); WHITE BLOOD COUNT 5.9 10^3/ul (4.8-10.8)
[2016-10-14 05:47] LABS: POTASSIUM 5.1 mmol/L (3.5-5.1)
[2016-10-14 05:50] LABS: CALCIUM 8.8 mg/dl (8.4-10.2); CREATININE 0.88 mg/dl (0.44-1.00)
[2016-10-14 06:02] LABS: CONDITION 1; LH ANALYZER COMMENTS 1
[2016-10-14 08:04] VITALS: BP 114/55; PULSE 58; RESP 16
[2016-10-14] MEDS: SPIRONOLACTONE 25 MG TAB PO SCH ×2 (08:47→21:22)
[2016-10-14] MEDS: DOCUSATE SODIUM 100 MG CAP PO SCH ×2 (08:47→21:22)
[2016-10-14] MEDS: RANITIDINE 150 MG TAB PO SCH ×2 (08:47→21:22)
[2016-10-14] MEDS: PREGABALIN 25 MG CAP PO SCH ×2 (08:51→21:22)
[2016-10-14] MEDS: PROPRANOLOL 10 MG TAB PO SCH (09:00)
--- NOTE | 2016-10-14 10:29 | PN ---
Date/Time of Note Date/Time of Note DATE: 10/14/16 TIME: 10:27 Assessment/Plan Lines/Catheters IV Catheter Type (from Nrsg): Saline Lock Dozier in Place (from Nrsg): Yes Assessment/Plan Assessment/Plan POD # 2. Stable. -Platelets and H/H fairly stable -Observe platelets and h/h for now. No transfusion for now. -OOB with PT -Pain meds -SCDs bilateral LE. No anticoagulation given low platelets -Possible d/c to home tomorrow Subjective 24 Hr Interval Summary Doing well. Minimal pain. Walked yesterday x 2 with PT. Exam/Review of Systems Vital Signs Vitals Vital Signs Date Time Temp Pulse Resp B/P Pulse Ox O2 Delivery O2 Flow Rate FiO2 10/14/16 08:04 98.3 58 16 114/55 95 Room Air 10/14/16 01:29 2.0 Intake and Output 10/13/16 10/13/16 10/14/16 15:00 23:00 07:00 Intake Total 140 ml 1870 ml 2050 ml Output Total 30 ml 1580 ml 1500 ml Balance 110 ml 290 ml 550 ml Exam Free Text/Dictation Hemovac: 110 cc Dressing dry Incision clean, dry, and intact without redness or drainage Thigh soft 5/5 Quadriceps, Tibialis Anterior, EHL, Gastroc Soleus, Peroneals Normal sensation Palpable DP/PT, CR < 2 Sec No distal edema Results Result Diagram: 10/14/16 0455 10/14/16 0455 [place] BENTON MD Oct 14, 2016 10:29
[2016-10-14 10:56] LABS: ADD UMIC YES; URINE BILIRUBIN (Dip) NEGATIVE (NEGATIVE); URINE BLOOD (Dip) 2+ (NEGATIVE); URINE COLOR LT. YELLOW (YELLOW); URINE GLUCOSE (Dip) NEGATIVE (NEGATIVE); URINE KETONES (Dip) NEGATIVE (NEGATIVE); URINE LEUKOCYTE ESTERASE (Dip) TRACE (NEGATIVE); URINE NITRITE (Dip) NEGATIVE (NEGATIVE); URINE TOTAL PROTEIN (Dip) NEGATIVE (NEGATIVE); URINE UROBILINOGEN (Dip) 1.0 E.U./dL (0.1-1.0)
[2016-10-14 11:23] LABS: SQUAMOUS EPITHELIAL CELL,UR OCCASIONAL
--- NOTE | 2016-10-14 11:41 | CONS ---
Date/Time of Note Date/Time of Note DATE: 10/14/16 TIME: 11:37 Assessment/Plan Assessment/Plan Chief Complaint/Hosp Course IMPRESSION: 1. PACs by tele postop.-low TSH 2. Palpitations secondary to #1.-neg trop x 2 3. Bradycardia-stable/propranolol as tolerated 4. Hypotension, borderline, likely due to the patient's baseline cirrhosis. 5. Postoperative status post hip replacement. 6. Liver cirrhosis. 7. Hepatitis C virus positivity. Recc: -BB as tolerated only likely for portal hypertension -PT -Paion control -Follow BP/HR closely -check Free T4 Problems: Consultation Date/Type/Reason Admit Date/Time Oct 12, 2016 at 06:09 Initial Consult Date 10/13/2016 Type of Consultation: Cardiology Reason for Consultation bradycardia/PAC Referring Provider: SHABBIR JIMENEZ MD Exam/Review of Systems Vital Signs Vitals Vital Signs Date Time Temp Pulse Resp B/P Pulse Ox O2 Delivery O2 Flow Rate FiO2 10/14/16 08:04 98.3 58 16 114/55 95 Room Air 10/14/16 01:29 2.0 Intake and Output 10/13/16 10/13/16 10/14/16 15:00 23:00 07:00 Intake Total 140 ml 1870 ml 2050 ml Output Total 30 ml 1580 ml 1500 ml Balance 110 ml 290 ml 550 ml Exam Review of Systems: CONSTITUTIONAL: No fevers, chills. PULMONARY: No sob CARDIOVASCULAR: No chest pain/palpitations GASTROINTESTINAL: No nausea/vomiting. GENITOURINARY: No hematuria/dysuria. MUSCULOSKELETAL: Mild pain at surgical incision site PSYCHIATRIC: The patient denies depression. NEUROLOGIC: No weakness Constitutional: alert, oriented Psych: no complaints Head: normocephalic ENMT: mucosa pink and moist Neck: jvd (8 cm water), supple Respiratory: clear to auscultation Cardiovascular: regular rate and rhythm Gastrointestinal: non-tender, soft Musculoskeletal: muscle tone (normal), other (R hip covered by dressing with mild bleeding) Extremities: edema (none) Neurological: other (No focal deficits) Results Result Diagram: 10/14/16 0455 10/14/16 0455 Results 24 hrs Laboratory Tests Test 10/13/16 16:10 10/13/16 17:40 10/14/16 04:55 10/14/16 10:35 Basophils # 0.0 0.0 Basophils % 0.0 0.0 Blood Morphology Comment Eosinophils # 0.0 0.0 Eosinophils % 0.0 0.0 Hematocrit 27.4 L 26.4 L Hemoglobin 9.4 L 9.0 L Lymphocytes # 0.4 L 0.6 L Lymphocytes % 5.5 L 9.4 L Mean Corpuscular Hemoglobin 35.6 H 35.4 H Mean Corpuscular Hemoglobin Concent 34.2 34.0 Mean Corpuscular Volume 103.9 H 104.1 H Mean Platelet Volume 7.4 8.2 Monocytes # 0.4 0.4 Monocytes % 4.9 7.0 Neutrophils # 7.2 5.0 Neutrophils % 89.6 H 83.6 H Nucleated Red Blood Cells # 0.0 0.0 Nucleated Red Blood Cells % 0.0 0.0 Platelet Count 72 L 63 L Red Blood Count 2.64 L 2.53 L Red Cell Distribution Width 14.0 14.3 White Blood Count 8.0 5.9 # Thyroid Stimulating Hormone (TSH) 0.311 L Troponin I < 0.012 < 0.012 Anion Gap 10 # Blood Urea Nitrogen 19 Calcium Level 8.8 Carbon Dioxide Level 23 Chloride Level 112 H Creatinine 0.88 Glucose Level 99 Potassium Level 5.1 Sodium Level 140 Urine Bilirubin NEGATIVE Urine Clarity CLEAR Urine Color LT. YELLOW Urine Glucose NEGATIVE Urine Hemoglobin 2+ H Urine Ketones NEGATIVE Urine Leukocyte Esterase TRACE H Urine Microscopic RBC 5-10 Urine Microscopic WBC 2-5 Urine Nitrite NEGATIVE Urine Specific [place] 1.010 Urine Squamous Epithelial Cells OCCASIONAL Urine Total Protein NEGATIVE Urine Urobilinogen 1.0 E.U./dL Urine pH 7.0 Medications Medications Current Medications Miscellaneous Information 1 ea NOTE XX ; Start 10/12/16 at 07:00; Stop 10/16/16 at 06:59 Propranolol HCl (Inderal) 10 mg BID PO ; Start 10/12/16 at 21:00 Spironolactone 25 mg 25 mg BID PO Last administered on 10/14/16at 08:47; Admin Dose 25 MG; Start 10/12/16 at 21:00 Lactated Ringer's (Lr) 1,000 ml @ 125 mls/hr Q8H IV Last administered on 10/14at 05:17; Admin Dose 125 MLS/HR; Start 10/12/16 at 13:38 Tramadol HCl (Ultram) 50 mg Q6 PO Last administered on 10/14/16at 11:30; Admin Dose 50 MG; Start 10/12/16 at 18:00; Stop 10/15/16 at 17:59 Oxycodone HCl (Roxicodone) 5 mg Q4H PRN PO PAIN LEVEL 1-3; Start 10/12/16 at 14:00 Oxycodone HCl (Roxicodone) 10 mg Q4H PRN PO PAIN LEVEL 4-7; Start 10/12/16 at 14:00 Hydromorphone HCl (Dilaudid) 1 mg Q3H PRN IV PAIN LEVEL 8-10; Start 10/12/16 at 14:00 Ondansetron HCl (Zofran Inj) 4 mg Q6H PRN IV NAUSEA AND/OR VOMITING; Start at 14:00 Bisacodyl (Dulcolax Supp) [address] CONSTIPATION; Start 10/12/16 at 14 :00 Magnesium Hydroxide (Milk Of Mag) 30 ml BID PRN PO CONSTIPATION; Start at 14:00 Sodium Biphosphate/ Sodium Phosphate (Fleet Enema) [address] CONSTIPATION; Start 10/12/16 at 14:00 Docusate Sodium (Colace) 100 mg BID PO Last administered on 10/14/16at 08:47; Admin Dose 100 MG; Start 10/12/16 at 21:00 Diphenhydramine HCl (Benadryl) 25 mg Q6H PRN PO PRURITUS; Start 10/12/16 at 14 :00 Pregabalin (Lyrica) 50 mg BID PO Last administered on 10/14/16at 08:51; Admin Dose 50 MG; Start 10/12/16 at 21:00 Ranitidine HCl (Zantac) 150 mg BID PO Last administered on 10/14/16at 08:47; Admin Dose 150 MG; Start 10/12/16 at 21:00 SIERRA KENDALL Oct 14, 2016 11:41
--- NOTE | 2016-10-14 12:04 | PN ---
Date/Time of Note Date/Time of Note DATE: 10/14/16 TIME: 11:59 Assessment/Plan VTE Prophylaxis VTE Prophylaxis Intervention: contraindicated (Cirrhosis) Lines/Catheters [facility] Saline Lock Urinary Cath still in place: Yes Reason Cath still needed: urinary retention Assessment/Plan Problems: (1) History of hepatitis C Status: Chronic Comment: The patient reports she is status post Harvoni treatment and reportedly is cleared. She is on propanolol and Spironolactone for cirrhosis with portal hypertension I attempted to discuss with her the option of using Katia wall once a day for the portal hypertension she requests that I try and can contact her liver specialist which I have done and he is in concurrence. Dr. Carlos (2) Cirrhosis of liver Status: Chronic Comment: Compensated and stable Qualifiers: Hepatic cirrhosis type: alcoholic cirrhosis Ascites presence: with ascites Qualified Code: K70.31 - Alcoholic cirrhosis of liver with ascites (3) Alcoholism in recovery Status: Chronic Comment: Reportedly in remission (4) Aftercare following right hip joint replacement surgery Status: Acute Comment: She is doing relatively well postoperatively despite her increased preoperative risk. Continue physical therapy Subjective 24 Hr Interval Summary Free Text/Dictation Patient without significant complaints reports some right hip pain. She does have a long list of complaints about physicians outside of the hospital Constitutional: no complaints Respiratory: no complaints Cardiovascular: no complaints Gastrointestinal: no complaints Genitourinary: no complaints Exam/Review of Systems Vital Signs Vitals Vital Signs Date Time Temp Pulse Resp B/P Pulse Ox O2 Delivery O2 Flow Rate FiO2 10/14/16 08:04 98.3 58 16 114/55 95 Room Air 10/14/16 01:29 2.0 Intake and Output 10/13/16 10/13/16 10/14/16 15:00 23:00 07:00 Intake Total 140 ml 1870 ml 2050 ml Output Total 30 ml 1580 ml 1500 ml Balance 110 ml 290 ml 550 ml Exam Constitutional: alert, oriented Neck: non-tender, supple Respiratory: clear to auscultation, normal air movement Cardiovascular: nl pulses, regular rate and rhythm Results Result Diagram: 10/14/16 0455 10/14/16 0455 Results 24 hrs Laboratory Tests Test 10/13/16 16:10 10/13/16 17:40 10/14/16 04:55 10/14/16 10:35 Basophils # 0.0 0.0 Basophils % 0.0 0.0 Blood Morphology Comment Eosinophils # 0.0 0.0 Eosinophils % 0.0 0.0 Hematocrit 27.4 L 26.4 L Hemoglobin 9.4 L 9.0 L Lymphocytes # 0.4 L 0.6 L Lymphocytes % 5.5 L 9.4 L Mean Corpuscular Hemoglobin 35.6 H 35.4 H Mean Corpuscular Hemoglobin Concent 34.2 34.0 Mean Corpuscular Volume 103.9 H 104.1 H Mean Platelet Volume 7.4 8.2 Monocytes # 0.4 0.4 Monocytes % 4.9 7.0 Neutrophils # 7.2 5.0 Neutrophils % 89.6 H 83.6 H Nucleated Red Blood Cells # 0.0 0.0 Nucleated Red Blood Cells % 0.0 0.0 Platelet Count 72 L 63 L Red Blood Count 2.64 L 2.53 L Red Cell Distribution Width 14.0 14.3 White Blood Count 8.0 5.9 # Thyroid Stimulating Hormone (TSH) 0.311 L Troponin I < 0.012 < 0.012 Anion Gap 10 # Blood Urea Nitrogen 19 Calcium Level 8.8 Carbon Dioxide Level 23 Chloride Level 112 H Creatinine 0.88 Glucose Level 99 Potassium Level 5.1 Sodium Level 140 Urine Bilirubin NEGATIVE Urine Clarity CLEAR Urine Color LT. YELLOW Urine Glucose NEGATIVE Urine Hemoglobin 2+ H Urine Ketones NEGATIVE Urine Leukocyte Esterase TRACE H Urine Microscopic RBC 5-10 Urine Microscopic WBC 2-5 Urine Nitrite NEGATIVE Urine Specific [place] 1.010 Urine Squamous Epithelial Cells OCCASIONAL Urine Total Protein NEGATIVE Urine Urobilinogen 1.0 E.U./dL Urine pH 7.0 Medications Medications Current Medications Miscellaneous Information 1 ea NOTE XX ; Start 10/12/16 at 07:00; Stop 10/16/16 at 06:59 Propranolol HCl (Inderal) 10 mg BID PO ; Start 10/12/16 at 21:00 Spironolactone 25 mg 25 mg BID PO Last administered on 10/14/16at 08:47; Admin Dose 25 MG; Start 10/12/16 at 21:00 Lactated Ringer's (Lr) 1,000 ml @ 125 mls/hr Q8H IV Last administered on 10/14at 05:17; Admin Dose 125 MLS/HR; Start 10/12/16 at 13:38 Tramadol HCl (Ultram) 50 mg Q6 PO Last administered on 10/14/16at 11:30; Admin Dose 50 MG; Start 10/12/16 at 18:00; Stop 10/15/16 at 17:59 Oxycodone HCl (Roxicodone) 5 mg Q4H PRN PO PAIN LEVEL 1-3; Start 10/12/16 at 14:00 Oxycodone HCl (Roxicodone) 10 mg Q4H PRN PO PAIN LEVEL 4-7; Start 10/12/16 at 14:00 Hydromorphone HCl (Dilaudid) 1 mg Q3H PRN IV PAIN LEVEL 8-10; Start 10/12/16 at 14:00 Ondansetron HCl (Zofran Inj) 4 mg Q6H PRN IV NAUSEA AND/OR VOMITING; Start at 14:00 Bisacodyl (Dulcolax Supp) 10 mg Q12H PRN [place] CONSTIPATION; Start 10/12/16 at 14 :00 Magnesium Hydroxide (Milk Of Mag) 30 ml BID PRN PO CONSTIPATION; Start at 14:00 Sodium Biphosphate/ Sodium Phosphate (Fleet Enema) 133 ml DAILY PRN [place] CONSTIPATION; Start 10/12/16 at 14:00 Docusate Sodium (Colace) 100 mg BID PO Last administered on 10/14/16at 08:47; Admin Dose 100 MG; Start 10/12/16 at 21:00 Diphenhydramine HCl (Benadryl) 25 mg Q6H PRN PO PRURITUS; Start 10/12/16 at 14 :00 Pregabalin (Lyrica) 50 mg BID PO Last administered on 10/14/16at 08:51; Admin Dose 50 MG; Start 10/12/16 at 21:00 Ranitidine HCl (Zantac) 150 mg BID PO Last administered on 10/14/16at 08:47; Admin Dose 150 MG; Start 10/12/16 at 21:00 RAJ DIAZ MD Oct 14, 2016 12:03
--- NOTE | 2016-10-14 12:36 | RADRPT ---
Vent Rate: 56 bpm RR Interval: 0 msec IN Interval: 142 msec QRS Duration: 88 msec QT Interval: 414 msec QTC Interval: 399 msec P-R-T [place]: 43 - -21 - 54 degrees Sinus bradycardia Low voltage QRS Borderline ECG Electronically Signed By: Capo Priest [id number]
[2016-10-14] MEDS ORDERED: CYANOCOBALAMIN 1000 MCG INJ SC ONE (13:30)
[2016-10-14] MEDS: FOLIC ACID 1 MG TAB PO SCH (13:56)
[2016-10-14] MEDS: THIAMINE 100 MG TAB PO SCH (13:56)
[2016-10-14] MEDS: NADOLOL 40 MG TAB PO SCH (13:59)
[2016-10-14 14:04] VITALS: BP 100/52; PULSE 58; RESP 18
[2016-10-14 20:00] VITALS: BP 111/52; PULSE 57; RESP 18
[2016-10-15] MEDS: traMADol 50 MG TAB PO SCH ×3 (01:02→12:00)
[2016-10-15] MEDS: oxyCODONE 5 MG TAB PO PRN ×2 (04:57→19:52)
[2016-10-15] MEDS: LACTATED RINGER'S 1,000 ML IV SCH (05:38)
[2016-10-15 06:14] LABS: BASOPHILS % 0.4 % (0.0-2.0); EOSINOPHILS % 0.4 % (0.0-7.0); HEMATOCRIT 28.3 % (37.0-47.0); HEMOGLOBIN 9.7 g/dl (12.0-16.0); LYMPHOCYTES # 1.2 10^3/ul (0.8-2.9); LYMPHOCYTES % 17.9 % (15.0-51.0); MEAN CORPUSCULAR HEMOGLOBIN 35.8 pg (29.0-33.0); MEAN CORPUSCULAR HGB CONC 34.3 g/dl (32.0-37.0); MEAN CORPUSCULAR VOLUME 104.4 fl (82.0-101.0); MEAN PLATELET VOLUME 8.4 fl (7.4-10.4); MONOCYTE # 0.7 10^3/ul (0.3-0.9); MONOCYTES % 9.4 % (0.0-11.0); NEUTROPHILS % 71.9 % (39.0-77.0); PLATELET COUNT 73 10^3/UL (140-440); RED BLOOD COUNT 2.72 10^6/ul (4.20-5.40); UNCORRECTED WBC 6.9 10^3/ul (4.8-10.8); WHITE BLOOD COUNT 6.9 10^3/ul (4.8-10.8)
[2016-10-15 06:17] LABS: POTASSIUM 4.2 mmol/L (3.5-5.1)
[2016-10-15 06:20] LABS: CREATININE 0.81 mg/dl (0.44-1.00)
[2016-10-15 06:21] LABS: CALCIUM 8.7 mg/dl (8.4-10.2)
[2016-10-15 06:53] LABS: CONDITION 1; LH ANALYZER COMMENTS 1
--- NOTE | 2016-10-15 07:18 | PN ---
Date/Time of Note Date/Time of Note DATE: 10/15/16 TIME: 07:15 Assessment/Plan VTE Prophylaxis VTE Prophylaxis Intervention: other Lines/Catheters IV C[facility]ter Type (from [facility]): Saline Lock Urinary Cath still in place: No Assessment/Plan Problems: (1) UTI (urinary tract infection) Status: Acute Comment: Urine culture is positive for pansensitive E. coli. She is artery been given a couple of doses of appropriate medications IV with the surgery. I will switch her over to orals she will have her a few days to complete. Please note these will be adjusted based on her liver insufficiency. Qualifiers: Urinary tract infection type: acute cystitis Hematuria presence: without hematuria Qualified Code: N30.00 - Acute cystitis without hematuria (2) Cirrhosis of liver Status: Chronic Comment: This is noted she is tolerating the usage of the nadolol without issue. This does not seem to be decompensating. Qualifiers: Hepatic cirrhosis type: alcoholic cirrhosis Ascites presence: with ascites Qualified Code: K70.31 - Alcoholic cirrhosis of liver with ascites (3) Osteoarthritis Status: Chronic Comment: She is recuperating after joint replacement surgery. Qualifiers: Osteoarthritis location: hip Osteoarthritis type: primary Laterality: right Qualified Code: M16.11 - Primary osteoarthritis of right hip (4) Aftercare following right hip joint replacement surgery Status: Acute Comment: Patient is reporting pain and some loss of mobility. Please note that her pain medications are okay although we would have to limit Tylenol containing compounds to a maximum dosage of 1000 mg of acetaminophen per day. This is for the liver issues Subjective 24 Hr Interval Summary Free Text/Dictation Patient reports logistically she does not have support even be able to get home from the hospital today. She reports she will have support tomorrow please see the notes from the social workers and nurse case management. We will be able to have home health services before tomorrow also Constitutional: no complaints ENT: no complaints Respiratory: no complaints Cardiovascular: no complaints Gastrointestinal: no complaints Musculoskeletal: bone/joint pain (Complains of pain at the operative site and the posterior buttocks on the right) Exam/Review of Systems Vital Signs Vitals Vital Signs Date Time Temp Pulse Resp B/P Pulse Ox O2 Delivery O2 Flow Rate FiO2 10/14/16 20:00 98.3 57 18 111/52 96 Room Air 10/14/16 01:29 2.0 Intake and Output 10/14/16 10/14/16 10/15/16 15:00 23:00 07:00 Intake Total 700 ml 960 ml Output Total 300 ml 800 ml Balance 400 ml 160 ml Exam Constitutional: alert, oriented Neck: non-tender, supple Respiratory: clear to auscultation, normal air movement Cardiovascular: nl pulses, regular rate and rhythm Gastrointestinal: nl liver, spleen, non-tender, soft Extremities: normal pulses Results Result Diagram: 10/15/16 0451 10/15/16 0451 Results 24 hrs Laboratory Tests Test 10/14/16 10:35 10/14/16 16:00 10/15/16 04:51 Urine Bilirubin NEGATIVE Urine Clarity CLEAR Urine Color LT. YELLOW Urine Glucose NEGATIVE Urine Hemoglobin 2+ H Urine Ketones NEGATIVE Urine Leukocyte Esterase TRACE H Urine Microscopic RBC 5-10 Urine Microscopic WBC 2-5 Urine Nitrite NEGATIVE Urine Specific [place] 1.010 Urine Squamous Epithelial Cells OCCASIONAL Urine Total Protein NEGATIVE Urine Urobilinogen 1.0 E.U./dL Urine pH 7.0 Free Thyroxine 1.01 Anion Gap 10 Basophils # 0.0 Basophils % 0.4 Blood Morphology Comment Blood Urea Nitrogen 15 Calcium Level 8.7 Carbon Dioxide Level 25 Chloride Level 107 Creatinine 0.81 Eosinophils # 0.0 Eosinophils % 0.4 Glucose Level 77 Hematocrit 28.3 L Hemoglobin 9.7 L Lymphocytes # 1.2 Lymphocytes % 17.9 Mean Corpuscular Hemoglobin 35.8 H Mean Corpuscular Hemoglobin Concent 34.3 Mean Corpuscular Volume 104.4 H Mean Platelet Volume 8.4 Monocytes # 0.7 Monocytes % 9.4 Neutrophils # 5.0 Neutrophils % 71.9 Nucleated Red Blood Cells # 0.0 Nucleated Red Blood Cells % 0.0 Platelet Count 73 L Potassium Level 4.2 Red Blood Count 2.72 L Red Cell Distribution Width 14.0 Sodium Level 138 White Blood Count 6.9 Medications Medications Current Medications Miscellaneous Information 1 ea NOTE XX ; Start 10/12/16 at 07:00; Stop 10/16/16 at 06:59 Spironolactone 25 mg 25 mg BID PO Last administered on 10/14/16at 21:22; Admin Dose 25 MG; Start 10/12/16 at 21:00 Lactated Ringer's (Lr) 1,000 ml @ 125 mls/hr Q8H IV Last administered on 10/14at 05:17; Admin Dose 125 MLS/HR; Start 10/12/16 at 13:38 Tramadol HCl (Ultram) 50 mg Q6 PO Last administered on 10/15/16 01:02; Admin Dose 50 MG; Start 10/12/16 at 18:00; Stop 10/15/16 at 17:59 Oxycodone HCl (Roxicodone) 5 mg Q4H PRN PO PAIN LEVEL 1-3; Start 10/12/16 at 14:00 Oxycodone HCl (Roxicodone) 10 mg Q4H PRN PO PAIN LEVEL 4-7 Last administered on 10/15/16 04:57; Admin Dose 10 MG; Start 10/12/16 at 14:00 Hydromorphone HCl (Dilaudid) 1 mg Q3H PRN IV PAIN LEVEL 8-10; Start 10/12/16 at 14:00 Ondansetron HCl (Zofran Inj) 4 mg Q6H PRN IV NAUSEA AND/OR VOMITING; Start at 14:00 Bisacodyl (Dulcolax Supp) 10 mg Q12H PRN [place] CONSTIPATION; Start 10/12/16 at 14 :00 Magnesium Hydroxide (Milk Of Mag) 30 ml BID PRN PO CONSTIPATION; Start at 14:00 Sodium Biphosphate/ Sodium Phosphate (Fleet Enema) 133 ml DAILY PRN [place] CONSTIPATION; Start 10/12/16 at 14:00 Docusate Sodium (Colace) 100 mg BID PO Last administered on 10/14/16at 21:22; Admin Dose 100 MG; Start 10/12/16 at 21:00 Diphenhydramine HCl (Benadryl) 25 mg Q6H PRN PO PRURITUS; Start 10/12/16 at 14 :00 Pregabalin (Lyrica) 50 mg BID PO Last administered on 10/14/16 21:22; Admin Dose 50 MG; Start 10/12/16 at 21:00 Ranitidine HCl (Zantac) 150 mg BID PO Last administered on 10/14/16at 21:22; Admin Dose 150 MG; Start 10/12/16 at 21:00 Thiamine HCl (Vitamin B1) 100 mg DAILY PO Last administered on 10/14/16at 13:56 ; Admin Dose 100 MG; Start 10/14/16 at 12:00 Folic Acid (Folic Acid) 1 mg DAILY PO Last administered on 10/14/16at 13:56; Admin Dose 1 MG; Start 10/14/16 at 12:00 Nadolol (Corgard) 40 mg DAILY PO Last administered on 10/14/16at 13:59; Admin Dose 40 MG; Start 10/14/16 at 13:30 RAJ DIAZ MD Oct 15, 2016 07:18
[2016-10-15 08:03] VITALS: BP 93/51; PULSE 57; RESP 16
[2016-10-15] MEDS: DOCUSATE SODIUM 100 MG CAP PO SCH ×2 (09:08→21:14)
[2016-10-15] MEDS: THIAMINE 100 MG TAB PO SCH (09:08)
[2016-10-15] MEDS: FOLIC ACID 1 MG TAB PO SCH (09:09)
[2016-10-15] MEDS: RANITIDINE 150 MG TAB PO SCH ×2 (09:09→21:14)
[2016-10-15] MEDS: SPIRONOLACTONE 25 MG TAB PO SCH ×2 (09:09→21:14)
[2016-10-15] MEDS: PREGABALIN 25 MG CAP PO SCH ×2 (09:11→21:14)
[2016-10-15] MEDS: CEPHALEXIN 500 MG CAP PO SCH ×3 (09:17→21:14)
[2016-10-15] MEDS: NADOLOL 40 MG TAB PO SCH (09:18)
[2016-10-15 09:50] VITALS: BP 115/58; PULSE 68; RESP 16
--- NOTE | 2016-10-15 10:47 | PN ---
Date/Time of Note Date/Time of Note DATE: 10/15/16 TIME: 10:44 Assessment/Plan Lines/Catheters IV Catheter Type (from Nrsg): Saline Lock Dozier in Place (from Nrsg): No Assessment/Plan Assessment/Plan POD # 3. Stable. -H ARU eval -If not accepted to ARU, consider d/c to [facility] -OOB with PT -Pain meds -Bilateral LE SCDs -No anticoagulation given thrombocytopenia Subjective 24 Hr Interval Summary Resting comfortably. Walked with PT, but PT feels patient needs to go to SNF or ARU as she is not yet ready to go home and be independent. Exam/Review of Systems Vital Signs Vitals Vital Signs Date Time Temp Pulse Resp B/P Pulse Ox O2 Delivery O2 Flow Rate FiO2 10/15/16 08:03 98.1 57 16 93/51 97 Room Air 10/14/16 01:29 2.0 Intake and Output 10/14/16 10/14/16 10/15/16 15:00 23:00 07:00 Intake Total 700 ml 960 ml Output Total 300 ml 800 ml Balance 400 ml 160 ml Exam Free Text/Dictation Dressing dry Incision clean, dry, and intact without redness or drainage Thigh soft 5/5 Quadriceps, Tibialis Anterior, EHL, Gastroc Soleus, Peroneals Normal sensation Palpable DP/PT, CR < 2 Sec No distal edema Results Result Diagram: 10/15/16 04510/15/16 045 [place] BENTON MD Oct 15, 2016 10:46
--- NOTE | 2016-10-15 10:49 | PDOCDIS ---
Discharge Instructions DIAGNOSIS Discharge Diagnosis: S/P Right Anterior GEOVANNY CONDITION Patient Condition: Good HOME CARE INSTRUCTIONS: Diet Instructions: Regular ACTIVITY: Activity Restrictions: Slowly Increase Activity Avoid heavy lifting No Sexual Activity Do not Drive Weight Bearing FOLLOW UP/APPOINTMENTS Appointments F/u with Dr. Benton on 10/23/16 OTHER ORDERS: Other Orders: S/P Anterior GEOVANNY Physical Therapy: Three times per week at home x 2 weeks Daily in Rehab/SNF WB STATUS: WBAT Strengthening exercises for both upper and un-operated lower extremities. 1. Gait training with front wheeled walker 2. Wide base gait, no pivot turns. 3. Abductor strengthening. 4. Quadriceps and hamstring strengthening. 5. May switch to cane in contra lateral hand 6 weeks after surgery. 6. Physical Therapy can open case if nursing is not available. 7. Ice Packs while at rest to surgical wound for 20 minutes, 3 times/day. 8. Patient requires mobile SCDs to reduce risk of developing DVT following GEOVANNY. Patient will use the mobile SCDs for 30 days postoperatively. Hip Precautions: No posterior hip precautions. Bathing assistance by home health aide twice weekly if Medicare patient. Occupational Therapy: Evaluation for assistive devices and ADL training. Wound Care: Keep incision dry & covered with Tegaderm until first visit with Dr. Benton Anticoagulation Orders: NO Anticoagulation medication because of thrombocytopenia. Follow-up:Call for an appointment with Dr. Benton in 1 week after discharged from hospital at DME Orders: ALISIA, 3-in-1 Com[employer], Mobile SCDs [place] BENTON MD Oct 15, 2016 10:49
[2016-10-15] MEDS ORDERED: OXY5 PO (10:53)
[2016-10-15] MEDS ORDERED: CEPH500C PO (10:53)
[2016-10-15] MEDS ORDERED: LYRI25 PO (10:53)
[2016-10-15] MEDS ORDERED: FOLI-49 PO (10:53)
[2016-10-15] MEDS ORDERED: ULT50 PO (10:53)
[2016-10-15] MEDS ORDERED: RANI150T5 PO (10:53)
[2016-10-15] MEDS ORDERED: THIA100T56 PO (10:53)
[2016-10-15] MEDS ORDERED: DOCU-144 PO (10:53)
--- NOTE | 2016-10-15 12:35 | CONS ---
Date/Time of Note Date/Time of Note DATE: 10/15/16 TIME: 12:33 Assessment/Plan Assessment/Plan Chief Complaint/Hosp Course IMPRESSION: 1. PACs by tele postop.-low TSH 2. Palpitations secondary to #1.-neg trop x 2 3. Bradycardia-stable/propranolol as tolerated 4. Hypotension, borderline, likely due to the patient's baseline cirrhosis. 5. Postoperative status post hip replacement. 6. Liver cirrhosis. 7. Hepatitis C virus positivity. 8.Suppressed TSH/NL T4 ? sick euthyroid Recc: -BB as tolerated only likely for portal hypertension/changed to nadolol? -PT -Pain control -Follow BP/HR closely Problems: Consultation Date/Type/Reason Admit Date/Time Oct 12, 2016 at 06:09 Initial Consult Date 10/13/2016 Type of Consultation: Cardiology Reason for Consultation PAC/bradycardia Referring Provider: SHABBIR JIMENEZ MD Exam/Review of Systems Vital Signs Vitals Vital Signs Date Time Temp Pulse Resp B/P Pulse Ox O2 Delivery O2 Flow Rate FiO2 10/15/16 08:03 98.1 57 16 93/51 97 Room Air 10/14/16 01:29 2.0 Intake and Output 10/14/16 10/14/16 10/15/16 15:00 23:00 07:00 Intake Total 700 ml 960 ml Output Total 300 ml 800 ml Balance 400 ml 160 ml Exam Review of Systems: CONSTITUTIONAL: No fevers, chills. PULMONARY: No sob CARDIOVASCULAR: No chest pain/palpitations GASTROINTESTINAL: No nausea/vomiting. GENITOURINARY: No hematuria/dysuria. MUSCULOSKELETAL: No myagias/arthalgias. PSYCHIATRIC: The patient denies depression. NEUROLOGIC: No weakness Constitutional: other (sleeping) Psych: no complaints Head: normocephalic ENMT: mucosa pink and moist Neck: jvd (9 cm water), supple Respiratory: diminished breath sounds (at bases/B) Cardiovascular: regular rate and rhythm Gastrointestinal: non-tender, soft Musculoskeletal: muscle tone (normal) Extremities: edema (none) Neurological: other (No focal deficits) Results Result Diagram: 10/15/16 0451 10/15/16 0451 Results 24 hrs Laboratory Tests Test 10/14/16 16:00 10/15/16 04:51 Free Thyroxine 1.01 Anion Gap 10 Basophils # 0.0 Basophils % 0.4 Blood Morphology Comment Blood Urea Nitrogen 15 Calcium Level 8.7 Carbon Dioxide Level 25 Chloride Level 107 Creatinine 0.81 Eosinophils # 0.0 Eosinophils % 0.4 Glucose Level 77 Hematocrit 28.3 L Hemoglobin 9.7 L Lymphocytes # 1.2 Lymphocytes % 17.9 Mean Corpuscular Hemoglobin 35.8 H Mean Corpuscular Hemoglobin Concent 34.3 Mean Corpuscular Volume 104.4 H Mean Platelet Volume 8.4 Monocytes # 0.7 Monocytes % 9.4 Neutrophils # 5.0 Neutrophils % 71.9 Nucleated Red Blood Cells # 0.0 Nucleated Red Blood Cells % 0.0 Platelet Count 73 L Potassium Level 4.2 Red Blood Count 2.72 L Red Cell Distribution Width 14.0 Sodium Level 138 White Blood Count 6.9 Medications Medications Current Medications Miscellaneous Information 1 ea NOTE XX ; Start 10/12/16 at 07:00; Stop 10/16/16 at 06:59 Spironolactone 25 mg 25 mg BID PO Last administered on 10/15/16 09:09; Admin Dose 25 MG; Start 10/12/16 at 21:00 Lactated Ringer's (Lr) 1,000 ml @ 125 mls/hr Q8H IV Last administered on 10/14at 05:17; Admin Dose 125 MLS/HR; Start 10/12/16 at 13:38 Tramadol HCl (Ultram) 50 mg Q6 PO Last administered on 10/15/16 09:10; Admin Dose 50 MG; Start 10/12/16 at 18:00; Stop 10/15/16 at 17:59 Oxycodone HCl (Roxicodone) 5 mg Q4H PRN PO PAIN LEVEL 1-3; Start 10/12/16 at 14:00 Oxycodone HCl (Roxicodone) 10 mg Q4H PRN PO PAIN LEVEL 4-7 Last administered on 10/15/16 04:57; Admin Dose 10 MG; Start 10/12/16 at 14:00 Hydromorphone HCl (Dilaudid) 1 mg Q3H PRN IV PAIN LEVEL 8-10; Start 10/12/16 at 14:00 Ondansetron HCl (Zofran Inj) 4 mg Q6H PRN IV NAUSEA AND/OR VOMITING; Start at 14:00 Bisacodyl (Dulcolax Supp) 10 mg Q12H PRN [place] CONSTIPATION; Start 10/12/16 at 14 :00 Magnesium Hydroxide (Milk Of Mag) 30 ml BID PRN PO CONSTIPATION; Start at 14:00 Sodium Biphosphate/ Sodium Phosphate (Fleet Enema) 133 ml DAILY PRN [place] CONSTIPATION; Start 10/12/16 at 14:00 Docusate Sodium (Colace) 100 mg BID PO Last administered on 10/15/16 09:08; Admin Dose 100 MG; Start 10/12/16 at 21:00 Diphenhydramine HCl (Benadryl) 25 mg Q6H PRN PO PRURITUS; Start 10/12/16 at 14 :00 Pregabalin (Lyrica) 50 mg BID PO Last administered on 10/15/16 09:11; Admin Dose 50 MG; Start 10/12/16 at 21:00 Ranitidine HCl (Zantac) 150 mg BID PO Last administered on 10/15/16 09:09; Admin Dose 150 MG; Start 10/12/16 at 21:00 Thiamine HCl (Vitamin B1) 100 mg DAILY PO Last administered on 10/15/16 09:08; Admin Dose 100 MG; Start 10/14/16 at 12:00 Folic Acid (Folic Acid) 1 mg DAILY PO Last administered on 10/15/16 09:09; Admin Dose 1 MG; Start 10/14/16 at 12:00 Nadolol (Corgard) 40 mg DAILY PO Last administered on 10/15/16 09:18; Admin Dose 40 MG; Start 10/14/16 at 13:30 Cephalexin (Keflex) 500 mg Q8 PO Last administered on 10/15/16 09:17; Admin Dose 500 MG; Start 10/15/16 at 07:30; Stop 10/21/16 at 07:29 SIERRA KENDALL Oct 15, 2016 12:35
[2016-10-15] MEDS: ONDANSETRON 4 MG INJ IV PRN (16:18)
[2016-10-15 19:22] VITALS: BP 129/58; RESP 18
[2016-10-16] MEDS: CEPHALEXIN 500 MG CAP PO SCH ×3 (05:05→21:34)
[2016-10-16] MEDS: ONDANSETRON 4 MG INJ IV PRN ×3 (05:06→23:18)
[2016-10-16] MEDS: oxyCODONE 5 MG TAB PO PRN ×3 (05:06→18:05)
[2016-10-16 06:08] LABS: BASOPHILS % 0.6 % (0.0-2.0); EOSINOPHILS # 0.2 10^3/ul (0.0-0.5); HEMOGLOBIN 10.2 g/dl (12.0-16.0); LYMPHOCYTES % 25.1 % (15.0-51.0); MEAN CORPUSCULAR HEMOGLOBIN 35.5 pg (29.0-33.0); MEAN CORPUSCULAR HGB CONC 33.9 g/dl (32.0-37.0); MEAN CORPUSCULAR VOLUME 104.4 fl (82.0-101.0); MEAN PLATELET VOLUME 8.8 fl (7.4-10.4); MONOCYTE # 0.6 10^3/ul (0.3-0.9); NEUTROPHIL # 5.2 10^3/ul (1.6-7.5); NEUTROPHILS % 64.3 % (39.0-77.0); PLATELET COUNT 99 10^3/UL (140-440); RED BLOOD COUNT 2.87 10^6/ul (4.20-5.40); RED CELL DISTRIBUTION WIDTH 13.9 % (11.5-14.5); UNCORRECTED WBC 8.1 10^3/ul (4.8-10.8); WHITE BLOOD COUNT 8.1 10^3/ul (4.8-10.8)
[2016-10-16 06:21] LABS: CONDITION 1; LH ANALYZER COMMENTS 1
[2016-10-16 06:39] LABS: POTASSIUM 4.1 mmol/L (3.5-5.1)
[2016-10-16 06:42] LABS: CREATININE 0.84 mg/dl (0.44-1.00)
[2016-10-16 06:43] LABS: CALCIUM 8.6 mg/dl (8.4-10.2)
[2016-10-16 08:52] VITALS: BP 109/63; RESP 18
[2016-10-16] MEDS: RANITIDINE 150 MG TAB PO SCH ×2 (09:02→21:34)
[2016-10-16] MEDS: DOCUSATE SODIUM 100 MG CAP PO SCH ×2 (09:02→21:34)
[2016-10-16] MEDS: THIAMINE 100 MG TAB PO SCH (09:02)
[2016-10-16] MEDS: FOLIC ACID 1 MG TAB PO SCH (09:02)
[2016-10-16] MEDS: PREGABALIN 25 MG CAP PO SCH ×2 (09:02→21:33)
[2016-10-16] MEDS: NADOLOL 40 MG TAB PO SCH (09:03)
[2016-10-16] MEDS: SPIRONOLACTONE 25 MG TAB PO SCH ×2 (09:47→21:33)
--- NOTE | 2016-10-16 11:23 | CONS ---
Date/Time of Note Date/Time of Note DATE: 10/16/16 TIME: 11:21 Assessment/Plan Assessment/Plan Chief Complaint/Hosp Course IMPRESSION: 1. PACs by tele postop.-low TSH 2. Palpitations secondary to #1.-neg trop x 2 3. Bradycardia-stable/BB as tolerated 4. Hypotension, borderline, likely due to the patient's baseline cirrhosis. 5. Postoperative status post hip replacement. 6. Liver cirrhosis. 7. Hepatitis C virus positivity. 8.Suppressed TSH/NL T4 ? sick euthyroid Recc: -BB as tolerated only likely for portal hypertension/changed to nadolol? -PT -Pain control -Follow BP/HR closely -Continue keflex Problems: Consultation Date/Type/Reason Admit Date/Time Oct 12, 2016 at 06:09 Initial Consult Date 10/13/2016 Type of Consultation: Cardiology Reason for Consultation bradycardia Referring Provider: SHABBIR JIMENEZ MD Exam/Review of Systems Vital Signs Vitals Vital Signs Date Time Temp Pulse Resp B/P Pulse Ox O2 Delivery O2 Flow Rate FiO2 10/16/16 08:52 98.7 60 18 109/63 96 10/15/16 09:50 Room Air 10/14/16 01:29 2.0 Intake and Output 10/15/16 10/15/16 10/16/16 15:00 23:00 07:00 Intake Total 440 ml 600 ml Output Total 750 ml Balance -310 ml 600 ml Exam Review of Systems: CONSTITUTIONAL: No fevers, chills. PULMONARY: No sob CARDIOVASCULAR: No chest pain/palpitations GASTROINTESTINAL: No nausea/vomiting. GENITOURINARY: No hematuria/dysuria. MUSCULOSKELETAL: pain at surgical site and ribs PSYCHIATRIC: The patient denies depression. NEUROLOGIC: No weakness Constitutional: alert, oriented Psych: no complaints Head: normocephalic ENMT: mucosa pink and moist Neck: jvd (8 cm water), supple Respiratory: clear to auscultation Cardiovascular: other (bradycardic) Gastrointestinal: non-tender, soft Musculoskeletal: muscle tone (normal) Extremities: edema (none) Results Result Diagram: 10/16/16 0431 10/16/16 0451 Results 24 hrs Laboratory Tests Test 10/16/16 04:31 10/16/16 04:51 Basophils # 0.0 Basophils % 0.6 Blood Morphology Comment Eosinophils # 0.2 Eosinophils % 2.0 Hematocrit 30.0 L Hemoglobin 10.2 L Lymphocytes # 2.0 Lymphocytes % 25.1 Mean Corpuscular Hemoglobin 35.5 H Mean Corpuscular Hemoglobin Concent 33.9 Mean Corpuscular Volume 104.4 H Mean Platelet Volume 8.8 Monocytes # 0.6 Monocytes % 8.0 Neutrophils # 5.2 Neutrophils % 64.3 Nucleated Red Blood Cells # 0.0 Nucleated Red Blood Cells % 0.0 Platelet Count 99 #L Red Blood Count 2.87 L Red Cell Distribution Width 13.9 White Blood Count 8.1 Anion Gap 12 Blood Urea Nitrogen 14 Calcium Level 8.6 Carbon Dioxide Level 23 Chloride Level 108 Creatinine 0.84 Glucose Level 82 Potassium Level 4.1 Sodium Level 139 Medications Medications Current Medications Spironolactone (Aldactone) 25 mg BID PO Last administered on 10/16/16 09:47; Admin Dose 25 MG; Start 10/12/16 at 21:00 Oxycodone HCl (Roxicodone) 5 mg Q4H PRN PO PAIN LEVEL 1-3; Start 10/12/16 at 14:00 Oxycodone HCl (Roxicodone) 10 mg Q4H PRN PO PAIN LEVEL 4-7 Last administered on 10/16/16 05:06; Admin Dose 10 MG; Start 10/12/16 at 14:00 Hydromorphone HCl (Dilaudid) 1 mg Q3H PRN IV PAIN LEVEL 8-10; Start 10/12/16 at 14:00 Ondansetron HCl (Zofran Inj) 4 mg Q6H PRN IV NAUSEA AND/OR VOMITING Last administered on 10/16/16 05:06; Admin Dose 4 MG; Start 10/12/16 at 14:00 Bisacodyl (Dulcolax Supp) 10 mg Q12H PRN [place] CONSTIPATION; Start 10/12/16 at 14 :00 Magnesium Hydroxide (Milk Of Mag) 30 ml BID PRN PO CONSTIPATION; Start at 14:00 Sodium Biphosphate/ Sodium Phosphate (Fleet Enema) 133 ml DAILY PRN [place] CONSTIPATION; Start 10/12/16 at 14:00 Docusate Sodium (Colace) 100 mg BID PO Last administered on 10/16/16 09:02; Admin Dose 100 MG; Start 10/12/16 at 21:00 Diphenhydramine HCl (Benadryl) 25 mg Q6H PRN PO PRURITUS; Start 10/12/16 at 14 :00 Pregabalin (Lyrica) 50 mg BID PO Last administered on 10/16/16 09:02; Admin Dose 50 MG; Start 10/12/16 at 21:00 Ranitidine HCl (Zantac) 150 mg BID PO Last administered on 10/16/16 09:02; Admin Dose 150 MG; Start 10/12/16 at 21:00 Thiamine HCl (Vitamin B1) 100 mg DAILY PO Last administered on 10/16/16 09:02; Admin Dose 100 MG; Start 10/14/16 at 12:00 Folic Acid (Folic Acid) 1 mg DAILY PO Last administered on 10/16/16 09:02; Admin Dose 1 MG; Start 10/14/16 at 12:00 Nadolol (Corgard) 40 mg DAILY PO Last administered on 10/16/16 09:03; Admin Dose 40 MG; Start 10/14/16 at 13:30 Cephalexin (Keflex) 500 mg Q8 PO Last administered on 10/16/16 05:05; Admin Dose 500 MG; Start 10/15/16 at 07:30; Stop 10/21/16 at 07:29 SIERRA KENDALL Oct 16, 2016 11:23
--- NOTE | 2016-10-16 11:38 | PN ---
Date/Time of Note Date/Time of Note DATE: 10/16/16 TIME: 11:36 Assessment/Plan Lines/Catheters IV Catheter Type (from Nrsg): Saline Lock Dozier in Place (from Nrsg): No Assessment/Plan Assessment/Plan POD # 4. Stable. -D/C to [facility] once insurance authorization obtained -Pain meds -OOB with PT -Bilateral LE SCDs -No anticoagulation given thrombocytopenia -F/U with me on 10/23/16 Subjective 24 Hr Interval Summary Comfortable. Walked with PT today. Awaiting insurance authorization to transfer to [facility]. Exam/Review of Systems Vital Signs Vitals Vital Signs Date Time Temp Pulse Resp B/P Pulse Ox O2 Delivery O2 Flow Rate FiO2 10/16/16 08:52 98.7 60 18 109/63 96 10/15/16 09:50 Room Air 10/14/16 01:29 2.0 Intake and Output 10/15/16 10/15/16 10/16/16 15:00 23:00 07:00 Intake Total 440 ml 600 ml Output Total 750 ml Balance -310 ml 600 ml Exam Free Text/Dictation Dressing dry Incision clean, dry, and intact without redness or drainage Thigh soft 5/5 Quadriceps, Tibialis Anterior, EHL, Gastroc Soleus, Peroneals Normal sensation Palpable DP/PT, CR < 2 Sec No distal edema Results Result Diagram: 10/16/16 0431 10/16/16 0451 [place] BENTON MD Oct 16, 2016 11:38
--- NOTE | 2016-10-16 16:39 | PN ---
Date/Time of Note Date/Time of Note DATE: 10/16/16 TIME: 16:35 Assessment/Plan VTE Prophylaxis VTE Prophylaxis Intervention: SCD's Lines/Catheters IV [facility]from [facility] Saline Lock Urinary Cath still in place: No Assessment/Plan Chief Complaint/Hosp Course Assessment and plan 1. Right hip osteoarthritis. Patient is status post right total hip arthroplasty with anterior approach. Continue with physical therapy. Continue with analgesics as needed. 2. History of thrombocytopenia. Likely secondary to cirrhosis. Patient was transfused 2 units of platelets. We'll monitor and transfuse as needed. Remain stable at present. 3. Reported bradycardia. Cardiologists following. Beta christa per cardiology. 4. History of esophageal varices. No reports of bleeding at this time. Monitor H &H 5. History of hepatitis C. Patient is status post Harvonie treatment. Patient be followed up as outpatient for this issue 6. Anemia likely of chronic disease. H&H remained stable. Monitor for now. DVT prophylaxis: SCDs GERD prophylaxis: Zantac Disposition and plan: Continue with analgesics as needed. Discharge planning. Await possible [facility] at [facility]. We'll follow-up Discussed plan of care with Dr. Marina Problems: Subjective 24 Hr Interval Summary Free Text/Dictation Resting at this time. Still reports having some right hip pain. Little better today. AUTO DAMAGE APPRAISER at bedside Exam/Review of Systems Vital Signs Vitals Vital Signs Date Time Temp Pulse Resp B/P Pulse Ox O2 Delivery O2 Flow Rate FiO2 10/16/16 08:52 98.7 60 18 109/63 96 10/15/16 09:50 Room Air 10/14/16 01:29 2.0 Intake and Output 10/15/16 10/15/16 10/16/16 15:00 23:00 07:00 Intake Total 440 ml 600 ml Output Total 750 ml Balance -310 ml 600 ml Exam General: No acute signs or symptoms of distress Eyes: pupils equal round, Anicteric sclera Neck: Supple nontender, no JVD Cardiac: S1, S2 auscultated, regular rhythm and rate Pulmonary: No coarse rhonchi or breathing auscultated GI: Abdomen soft nontender nondistended, bowel sounds active Extremities: No edema bilateral lower extremities Skin: Surgical site right hip clean dry and intact Neurologic: Alert to person place and time and situation Results Result Diagram: 10/16/16 0431 10/16/16 0451 Results 24 hrs Laboratory Tests Test 10/16/16 04:31 10/16/16 04:51 Basophils # 0.0 Basophils % 0.6 Blood Morphology Comment Eosinophils # 0.2 Eosinophils % 2.0 Hematocrit 30.0 L Hemoglobin 10.2 L Lymphocytes # 2.0 Lymphocytes % 25.1 Mean Corpuscular Hemoglobin 35.5 H Mean Corpuscular Hemoglobin Concent 33.9 Mean Corpuscular Volume 104.4 H Mean Platelet Volume 8.8 Monocytes # 0.6 Monocytes % 8.0 Neutrophils # 5.2 Neutrophils % 64.3 Nucleated Red Blood Cells # 0.0 Nucleated Red Blood Cells % 0.0 Platelet Count 99 #L Red Blood Count 2.87 L Red Cell Distribution Width 13.9 White Blood Count 8.1 Anion Gap 12 Blood Urea Nitrogen 14 Calcium Level 8.6 Carbon Dioxide Level 23 Chloride Level 108 Creatinine 0.84 Glucose Level 82 Potassium Level 4.1 Sodium Level 139 Medications Medications Current Medications Spironolactone (Aldactone) 25 mg BID PO Last administered on 10/16/16 09:47; Admin Dose 25 MG; Start 10/12/16 at 21:00 Oxycodone HCl (Roxicodone) 5 mg Q4H PRN PO PAIN LEVEL 1-3; Start 10/12/16 at 14:00 Oxycodone HCl (Roxicodone) 10 mg Q4H PRN PO PAIN LEVEL 4-7 Last administered on 10/16/16 13:16; Admin Dose 10 MG; Start 10/12/16 at 14:00 Hydromorphone HCl (Dilaudid) 1 mg Q3H PRN IV PAIN LEVEL 8-10; Start 10/12/16 at 14:00 Ondansetron HCl (Zofran Inj) 4 mg Q6H PRN IV NAUSEA AND/OR VOMITING Last administered on 10/16/16 05:06; Admin Dose 4 MG; Start 10/12/16 at 14:00 Bisacodyl (Dulcolax Supp) 10 mg Q12H PRN [place] CONSTIPATION; Start 10/12/16 at 14 :00 Magnesium Hydroxide (Milk Of Mag) 30 ml BID PRN PO CONSTIPATION; Start at 14:00 Sodium Biphosphate/ Sodium Phosphate (Fleet Enema) 133 ml DAILY PRN [place] CONSTIPATION; Start 10/12/16 at 14:00 Docusate Sodium (Colace) 100 mg BID PO Last administered on 10/16/16 09:02; Admin Dose 100 MG; Start 10/12/16 at 21:00 Diphenhydramine HCl (Benadryl) 25 mg Q6H PRN PO PRURITUS; Start 10/12/16 at 14 :00 Pregabalin (Lyrica) 50 mg BID PO Last administered on 10/16/16 09:02; Admin Dose 50 MG; Start 10/12/16 at 21:00 Ranitidine HCl (Zantac) 150 mg BID PO Last administered on 10/16/16 09:02; Admin Dose 150 MG; Start 10/12/16 at 21:00 Thiamine HCl (Vitamin B1) 100 mg DAILY PO Last administered on 10/16/16 09:02; Admin Dose 100 MG; Start 10/14/16 at 12:00 Folic Acid (Folic Acid) 1 mg DAILY PO Last administered on 10/16/16 09:02; Admin Dose 1 MG; Start 10/14/16 at 12:00 Nadolol (Corgard) 40 mg DAILY PO Last administered on 10/16/16 09:03; Admin Dose 40 MG; Start 10/14/16 at 13:30 Cephalexin (Keflex) 500 mg Q8 PO Last administered on 10/16/16 14:53; Admin Dose 500 MG; Start 10/15/16 at 07:30; Stop 10/21/16 at 07:29 BRYON MOSER Oct 16, 2016 16:39
[2016-10-16 20:19] VITALS: BP 140/62; PULSE 62; RESP 18
[2016-10-17] MEDS: oxyCODONE 5 MG TAB PO PRN ×2 (02:35→15:33)
[2016-10-17 05:29] LABS: BASOPHILS % 0.4 % (0.0-2.0); EOSINOPHILS # 0.2 10^3/ul (0.0-0.5); EOSINOPHILS % 2.6 % (0.0-7.0); HEMATOCRIT 27.6 % (37.0-47.0); HEMOGLOBIN 9.6 g/dl (12.0-16.0); LYMPHOCYTES # 1.3 10^3/ul (0.8-2.9); LYMPHOCYTES % 18.5 % (15.0-51.0); MEAN CORPUSCULAR HGB CONC 34.7 g/dl (32.0-37.0); MEAN CORPUSCULAR VOLUME 103.7 fl (82.0-101.0); MEAN PLATELET VOLUME 8.2 fl (7.4-10.4); MONOCYTE # 0.6 10^3/ul (0.3-0.9); NEUTROPHIL # 4.8 10^3/ul (1.6-7.5); NEUTROPHILS % 69.5 % (39.0-77.0); PLATELET COUNT 76 10^3/UL (140-440); RED BLOOD COUNT 2.66 10^6/ul (4.20-5.40); RED CELL DISTRIBUTION WIDTH 14.7 % (11.5-14.5); UNCORRECTED WBC 6.9 10^3/ul (4.8-10.8); WHITE BLOOD COUNT 6.9 10^3/ul (4.8-10.8)
[2016-10-17 05:36] LABS: CONDITION 1; LH ANALYZER COMMENTS 1
[2016-10-17 05:40] LABS: POTASSIUM 4.6 mmol/L (3.5-5.1)
[2016-10-17 05:42] LABS: CREATININE 0.89 mg/dl (0.44-1.00)
[2016-10-17 05:43] LABS: CALCIUM 8.5 mg/dl (8.4-10.2)
[2016-10-17] MEDS: CEPHALEXIN 500 MG CAP PO SCH ×2 (05:45→15:14)
[2016-10-17 08:13] VITALS: BP 126/60; RESP 19
[2016-10-17] MEDS: PREGABALIN 25 MG CAP PO SCH (08:56)
[2016-10-17] MEDS: FOLIC ACID 1 MG TAB PO SCH (08:56)
[2016-10-17] MEDS: DOCUSATE SODIUM 100 MG CAP PO SCH (08:57)
[2016-10-17] MEDS: RANITIDINE 150 MG TAB PO SCH (08:57)
[2016-10-17] MEDS: SPIRONOLACTONE 25 MG TAB PO SCH (08:57)
[2016-10-17] MEDS: NADOLOL 40 MG TAB PO SCH (08:58)
[2016-10-17] MEDS: THIAMINE 100 MG TAB PO SCH (08:59)
--- NOTE | 2016-10-17 09:53 | PN ---
Date/Time of Note Date/Time of Note DATE: 10/17/16 TIME: 09:50 Assessment/Plan VTE Prophylaxis VTE Prophylaxis Intervention: SCD's Lines/Catheters IV Catheter Type (from [facility]): Saline Lock Urinary Cath still in place: No Assessment/Plan Chief Complaint/Hosp Course Assessment and plan 1. Right hip osteoarthritis. Patient is status post right total hip arthroplasty with anterior approach. Continue with physical therapy. Continue with analgesics as needed. 2. History of thrombocytopenia. Likely secondary to cirrhosis. Patient was transfused 2 units of platelets. We'll monitor and transfuse as needed. stable at present 3. Reported bradycardia. Nursing Home Social Worker following. Beta christa per cardiology. 4. History of esophageal varices. No reports of bleeding at this time. Monitor H &H 5. History of hepatitis C. Patient is status post Harvonie treatment. Patient be followed up as outpatient for this issue 6. Anemia likely of chronic disease. H&H remained stable. Monitor for now. DVT prophylaxis: SCDs GERD prophylaxis: Zantac Disposition and plan: . Discharge planning. Await possible placement at [facility]. We'll follow-up Discussed plan of care with Dr. Marina Problems: Subjective 24 Hr Interval Summary Free Text/Dictation working with physical therapist at this time. no apparent distress Exam/Review of Systems Vital Signs Vitals Vital Signs Date Time Temp Pulse Resp B/P Pulse Ox O2 Delivery O2 Flow Rate FiO2 10/17/16 08:13 98.2 58 19 126/60 98 10/16/16 20:19 Room Air 10/14/16 01:29 2.0 Intake and Output 10/16/16 10/16/16 10/17/16 15:00 23:00 07:00 Intake Total 620 ml 480 ml Output Total 1000 ml Balance -380 ml 480 ml Exam General: No acute signs or symptoms of distress Eyes: pupils equal round, Anicteric sclera Neck: Supple nontender, no JVD Cardiac: S1, S2 auscultated, regular rhythm and rate Pulmonary: No coarse rhonchi or breathing auscultated GI: Abdomen soft nontender nondistended, bowel sounds active Extremities: No edema bilateral lower extremities Skin: Surgical site right hip clean dry and intact Neurologic: Alert to person place and time and situation Results Result Diagram: 10/17/16 0430 10/17/16 0430 Results 24 hrs Laboratory Tests Test 10/17/16 04:30 Anion Gap 13 Basophils # 0.0 Basophils % 0.4 Blood Morphology Comment Blood Urea Nitrogen 16 Calcium Level 8.5 Carbon Dioxide Level 25 Chloride Level 104 Creatinine 0.89 Eosinophils # 0.2 Eosinophils % 2.6 Glucose Level 94 Hematocrit 27.6 L Hemoglobin 9.6 L Lymphocytes # 1.3 Lymphocytes % 18.5 Mean Corpuscular Hemoglobin 36.0 H Mean Corpuscular Hemoglobin Concent 34.7 Mean Corpuscular Volume 103.7 H Mean Platelet Volume 8.2 Monocytes # 0.6 Monocytes % 9.0 Neutrophils # 4.8 Neutrophils % 69.5 Nucleated Red Blood Cells # 0.0 Nucleated Red Blood Cells % 0.0 Platelet Count 76 #L Potassium Level 4.6 Red Blood Count 2.66 L Red Cell Distribution Width 14.7 H Sodium Level 137 White Blood Count 6.9 Medications Medications Current Medications Spironolactone (Aldactone) 25 mg BID PO Last administered on 10/17/16 08:57; Admin Dose 25 MG; Start 10/12/16 at 21:00 Oxycodone HCl (Roxicodone) 5 mg Q4H PRN PO PAIN LEVEL 1-3; Start 10/12/16 at 14:00 Oxycodone HCl (Roxicodone) 10 mg Q4H PRN PO PAIN LEVEL 4-7 Last administered on 10/16/16 18:05; Admin Dose 10 MG; Start 10/12/16 at 14:00 Hydromorphone HCl (Dilaudid) 1 mg Q3H PRN IV PAIN LEVEL 8-10; Start 10/12/16 at 14:00 Ondansetron HCl (Zofran Inj) 4 mg Q6H PRN IV NAUSEA AND/OR VOMITING Last administered on 10/16/16 23:18; Admin Dose 4 MG; Start 10/12/16 at 14:00 Bisacodyl (Dulcolax Supp) 10 mg Q12H PRN [place] CONSTIPATION; Start 10/12/16 at 14 :00 Magnesium Hydroxide (Milk Of Mag) 30 ml BID PRN PO CONSTIPATION; Start at 14:00 Sodium Biphosphate/ Sodium Phosphate (Fleet Enema) 133 ml DAILY PRN [place] CONSTIPATION; Start 10/12/16 at 14:00 Docusate Sodium (Colace) 100 mg BID PO Last administered on 10/17/16 08:57; Admin Dose 100 MG; Start 10/12/16 at 21:00 Diphenhydramine HCl (Benadryl) 25 mg Q6H PRN PO PRURITUS; Start 10/12/16 at 14 :00 Pregabalin (Lyrica) 50 mg BID PO Last administered on 10/17/16 08:56; Admin Dose 50 MG; Start 10/12/16 at 21:00 Ranitidine HCl (Zantac) 150 mg BID PO Last administered on 10/17/16 08:57; Admin Dose 150 MG; Start 10/12/16 at 21:00 Thiamine HCl (Vitamin B1) 100 mg DAILY PO Last administered on 10/16/16 09:02; Admin Dose 100 MG; Start 10/14/16 at 12:00 Folic Acid (Folic Acid) 1 mg DAILY PO Last administered on 10/17/16 08:56; Admin Dose 1 MG; Start 10/14/16 at 12:00 Nadolol (Corgard) 40 mg DAILY PO Last administered on 10/16/16 09:03; Admin Dose 40 MG; Start 10/14/16 at 13:30 Cephalexin (Keflex) 500 mg Q8 PO Last administered on 10/16/16 21:34; Admin Dose 500 MG; Start 10/15/16 at 07:30; Stop 10/21/16 at 07:29 Lactulose (Enulose) 20 gm Q6H PRN PO CONSTIPATION; Start 10/17/16 at 10:00; Status BRYON ASHRAF Oct 17, 2016 09:53
[2016-10-17] MEDS ORDERED: LACTULOSE 30ML CUP PO PRN (10:00)
--- NOTE | 2016-10-17 10:33 | PN ---
Date/Time of Note Date/Time of Note DATE: 10/17/16 TIME: 10:31 Assessment/Plan Lines/Catheters IV Catheter Type (from Nrsg): Saline Lock Dozier in Place (from Nrsg): No Assessment/Plan Assessment/Plan Stable POD #5, s/p right anterior GEOVANNY -pain meds -OOB with PT -SCDs -hold anticoagulation d/t thrombocytopenia -monitor labs -dressing change -plan to transfer to [facility] today -follow up with Dr. Hinson in the office on 10/23/15 Subjective 24 Hr Interval Summary Doing well. No acute overnight events. VSS, afebrile. Progressing with PT. Waiting final auth for [facility] but plan to transfer today Exam/Review of Systems Vital Signs Vitals Vital Signs Date Time Temp Pulse Resp B/P Pulse Ox O2 Delivery O2 Flow Rate FiO2 10/17/16 08:13 98.2 58 19 126/60 98 10/16/16 20:19 Room Air 10/14/16 01:29 2.0 Intake and Output 10/16/16 10/16/16 10/17/16 15:00 23:00 07:00 Intake Total 620 ml 480 ml Output Total 1000 ml Balance -380 ml 480 ml Exam Free Text/Dictation Dressing dry Incision clean, dry, and intact without redness or drainage 5/5 Quadriceps, Tibialis Anterior, EHL, Gastroc, Soleus, Peroneals Normal sensation Palpable DT/PT, CR <2 sec No distal edema Results Result Diagram: 10/17/1642910/17/16429 BERNARDO BOWLES PA-C Oct 17, 2016 10:33
--- NOTE | 2016-10-17 11:06 | CONS ---
Date/Time of Note Date/Time of Note DATE: 10/17/16 TIME: 11:04 Assessment/Plan Assessment/Plan Additional Assessment/Plan 1. PACs by tele postop-low TSH- sable, no Sx now 2. Palpitations secondary to #1.-neg trop x 2 3. Bradycardia-stable/BB as tolerated - no indication for pacer 4. Hypotension, borderline, likely due to the patient's baseline cirrhosis.- stable now 5. Postoperative status post hip replacement. 6. Liver cirrhosis. 7. Hepatitis C virus positivity - ID to follow 8.Suppressed TSH/NL T4 ? sick euthyroid Consultation Date/Type/Reason Admit Date/Time Oct 12, 2016 at 06:09 Initial Consult Date Type of Consultation: Cardiology Referring Provider: SHABBIR JIMENEZ MD 24 HR Interval Summary Free Text/Dictation No acute change - con't med rx - off tele now. ROS: No fever, no chills, no nausea, no vomiting, no diarrhea/constipation No recent weight changes No chest pain, no PND, no orthopnea No dizziness, blurred vision No thirst, no heat or cold intolerance Exam/Review of Systems Vital Signs Vitals Vital Signs Date Time Temp Pulse Resp B/P Pulse Ox O2 Delivery O2 Flow Rate FiO2 10/17/16 08:13 98.2 58 19 126/60 98 10/16/16 20:19 Room Air 10/14/16 01:29 2.0 Intake and Output 10/16/16 10/16/16 10/17/16 15:00 23:00 07:00 Intake Total 620 ml 480 ml Output Total 1000 ml Balance -380 ml 480 ml Exam General: WN/WD/NAD, AOx 3 HEENT: Unicetric/atraumatic/EOMI (follow commands) NECK: JVD elevated, no thyromegaly Lymph: no lymphadenopathy HEART: regular with no S3, II/ systolic murmur at apex LUNGS: Coarse sounds ABD: soft, NT, ND, +BS : Intact Neuro: non focal SKIN: chronic changes EXT: trace edema Results Result Diagram: 10/17/16 0430 10/17/16 0430 Results 24 hrs Laboratory Tests Test 10/17/16 04:30 Anion Gap 13 Basophils # 0.0 Basophils % 0.4 Blood Morphology Comment Blood Urea Nitrogen 16 Calcium Level 8.5 Carbon Dioxide Level 25 Chloride Level 104 Creatinine 0.89 Eosinophils # 0.2 Eosinophils % 2.6 Glucose Level 94 Hematocrit 27.6 L Hemoglobin 9.6 L Lymphocytes # 1.3 Lymphocytes % 18.5 Mean Corpuscular Hemoglobin 36.0 H Mean Corpuscular Hemoglobin Concent 34.7 Mean Corpuscular Volume 103.7 H Mean Platelet Volume 8.2 Monocytes # 0.6 Monocytes % 9.0 Neutrophils # 4.8 Neutrophils % 69.5 Nucleated Red Blood Cells # 0.0 Nucleated Red Blood Cells % 0.0 Platelet Count 76 #L Potassium Level 4.6 Red Blood Count 2.66 L Red Cell Distribution Width 14.7 H Sodium Level 137 White Blood Count 6.9 Medications Medications Current Medications Spironolactone (Aldactone) 25 mg BID PO Last administered on 10/17/16 08:57; Admin Dose 25 MG; Start 10/12/16 at 21:00 Oxycodone HCl (Roxicodone) 5 mg Q4H PRN PO PAIN LEVEL 1-3; Start 10/12/16 at 14:00 Oxycodone HCl (Roxicodone) 10 mg Q4H PRN PO PAIN LEVEL 4-7 Last administered on 10/16/16 18:05; Admin Dose 10 MG; Start 10/12/16 at 14:00 Hydromorphone HCl (Dilaudid) 1 mg Q3H PRN IV PAIN LEVEL 8-10; Start 10/12/16 at 14:00 Ondansetron HCl (Zofran Inj) 4 mg Q6H PRN IV NAUSEA AND/OR VOMITING Last administered on 10/16/16 23:18; Admin Dose 4 MG; Start 10/12/16 at 14:00 Bisacodyl (Dulcolax Supp) 10 mg Q12H PRN PA CONSTIPATION; Start 10/12/16 at 14 :00 Magnesium Hydroxide (Milk Of Mag) 30 ml BID PRN PO CONSTIPATION; Start at 14:00 Sodium Biphosphate/ Sodium Phosphate (Fleet Enema) 133 ml DAILY PRN PA CONSTIPATION; Start 10/12/16 at 14:00 Docusate Sodium (Colace) 100 mg BID PO Last administered on 10/17/16 08:57; Admin Dose 100 MG; Start 10/12/16 at 21:00 Diphenhydramine HCl (Benadryl) 25 mg Q6H PRN PO PRURITUS; Start 10/12/16 at 14 :00 Pregabalin (Lyrica) 50 mg BID PO Last administered on 10/17/16 08:56; Admin Dose 50 MG; Start 10/12/16 at 21:00 Ranitidine HCl (Zantac) 150 mg BID PO Last administered on 10/17/16 08:57; Admin Dose 150 MG; Start 10/12/16 at 21:00 Thiamine HCl (Vitamin B1) 100 mg DAILY PO Last administered on 10/16/16 09:02; Admin Dose 100 MG; Start 10/14/16 at 12:00 Folic Acid (Folic Acid) 1 mg DAILY PO Last administered on 10/17/16 08:56; Admin Dose 1 MG; Start 10/14/16 at 12:00 Nadolol (Corgard) 40 mg DAILY PO Last administered on 10/16/16 09:03; Admin Dose 40 MG; Start 10/14/16 at 13:30 Cephalexin (Keflex) 500 mg Q8 PO Last administered on 10/16/16 21:34; Admin Dose 500 MG; Start 10/15/16 at 07:30; Stop 10/21/16 at 07:29 Lactulose (Enulose) 20 gm Q6H PRN PO CONSTIPATION; Start 10/17/16 at 10:00 STEFAN VANG MD Oct 17, 2016 11:06
[2016-10-17] MEDS ORDERED: PANTOPRAZOLE (EC) 40 MG TAB PO ONE (14:30)
[2016-10-17] MEDS ORDERED: AL HYDROX/MG HYDROX/SIMETH 30 ML CUP PO ONE (14:30)
--- NOTE | 2016-10-17 15:56 | RADRPT ---
PROCEDURE: XR Chest. CLINICAL INDICATION: chest pain TECHNIQUE: Single frontal view of the chest was obtained COMPARISON: 10/04/2016 FINDINGS: The heart and mediastinum are within normal limits. There is mild left lower lobe linear atelectasis. The lungs are otherwise clear. There is no pleural effusion or pneumothorax. RPTAT: AA IMPRESSION: Mild left lower lobe linear atelectasis. .Nolberto Mena MD, MD Date Time Electronically viewed and signed by .Nolberto Mena MD, on 10/17/2016 15:56 .S/
--- NOTE | 2016-10-18 11:03 | DS ---
DATE OF ADMISSION: 10/12/2016 DATE OF DISCHARGE: 10/17/2016 CONDITION UPON DISCHARGE: Stable ADMITTING DIAGNOSIS: Right hip osteoarthritis. DISCHARGE DIAGNOSIS: Status post right anterior total hip arthroplasty. PROCEDURE PERFORMED: Primary right anterior total hip arthroplasty. 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 She had undergone conservative modalities unsuccessfully and elect to proceed with a primary right anterior total hip arthroplasty. On 10/12/2016 the patient was admitted and taken to the operating room where she underwent a right anterior total hip arthroplasty. She did have a moderate amount of bleeding intraoperatively. However, there were no other intraoperative complications. The patient tolerated the procedure well. She was taken to the recovery room in stable condition. She was given routine perioperative IV antibiotics. Pain was well controlled with oral pain medication. She was started on SCDs for DVT prophylaxis. However, anticoagulation was held secondary to her history of thrombocytopenia. She remained hemodynamically stable and neurovascularly intact throughout her hospital stay. Her CBC was checked daily and revealed a stable platelet count, normal for the patient. On postoperative day 1, she began physical therapy. The drain was removed on postoperative day 2, she was monitored closely in the hospital until she was deemed clinically stable for discharge. The patient was transferred to [facility] on postoperative day 4. Prior to discharge, inspection was noted to be clean, dry and intact. Dressing changes were done prior. The patient is going to [facility]. LABORATORY ANALYSIS: Upon discharge, hemoglobin 9.6, hematocrit 27.6, platelet count of 76. Chemistry panel was within normal limits. DISCHARGE MEDICATIONS: 1. Tramadol 50 mg 2 [place] 5/325 mg. 3. Gabapentin 100 mg. 4. Protonix 40 mg. In addition, the patient is to resume all of her normal home medications. DISCHARGE INSTRUCTIONS: The patient was transferred to [facility]. She should resume a normal diet. Activity to includ weightbearing as tolerated on the right lower extremity. She should continue physical therapy. She will be discharged home on the medications noted above. Additionally, she will resume all of her normal home medication. She is to call the office or return to the emergency room for any concerns including increased redness, swelling, drainage or fever or any concern regarding the operation or site of incision. FOLLOWUP: The patient is to follow up with Dr. Hinson in the office on 2016. Dictated By: BERNARDO ENCISO for [place] [facility] Conf#: [id number] DID#: [id number] [id number]
== END 2016-10-17 17:05 | DRG 470 ==
LOC: REC 10-12 06:09 → MS1 10-13 09:22
PROVIDERS: ADMIT Orthopaedic Surgery; ATTEND Orthopaedic Surgery
PROC: 6A550Z2 Pheresis of Platelets, Single (ICD-10-PCS; 2016-10-12)
PROC: 0SR904A Replacement of Right Hip Joint with Ceramic on Polyethylene Synthetic Substitute, Uncemented, Open Approach (ICD-10-PCS; principal; 2016-10-12 10:00)
DX: M16.11 Unilateral primary osteoarthritis, right hip (principal); D69.59 Other secondary thrombocytopenia; K70.31 Alcoholic cirrhosis of liver with ascites; N39.0 Urinary tract infection, site not specified; B18.2 Chronic viral hepatitis C; R00.1 Bradycardia, unspecified; T44.7X5A Adverse effect of beta-adrenoreceptor antagonists, initial encounter; Y92.230 Patient room in hospital as the place of occurrence of the external cause; F10.21 Alcohol dependence, in remission; I10 Essential (primary) hypertension; B96.20 Unspecified Escherichia coli [E. coli] as the cause of diseases classified elsewhere; D63.8 Anemia in other chronic diseases classified elsewhere; Z87.891 Personal history of nicotine dependence
CPT/HCPCS: 36430; 71010; 72170; 73500; 73530; 80048; 81001; 81003; 84439; 84443; 84484; 85025; 86644; 86850; 86900; 86901; 86920; 87081; 87086; 88304; 88311; 93005; 97001; 97110; 97116; 97167; 97530; Z7610; C1713; C1776; C9290; J0171; J0690; J0697; J0735; J1100; J1644; J1885; J2001; J2250; J2274; J2405; J2710; J2765; J3010; J3370; J3420; J7120; P9035

== ENCOUNTER → 2016-10-23 | Outpatient (CLI) | payer OTHER ==
[~2016-10-23] MED LIST: CEPH500C PO; DOCU-144 PO; FOLI-49 PO; LYRI25 PO; OXY5 PO; PROP10TA6 PO; RANI150T5 PO; SPIR25TA76 PO; THIA100T56 PO; ULT50 PO
--- NOTE | 2016-10-23 12:15 | RADRPT ---
PROCEDURE: XR Right hip and pelvis. CLINICAL INDICATION: Right hip pain. Pelvic pain. Postop. TECHNIQUE: Two views. Frontal pelvis and lateral right hip. COMPARISON: 10/12/2016. FINDINGS: There is no fracture or dislocation. The soft tissues are normal. There is a right hip total arthroplasty which appears satisfactory. The left hip is grossly normal. There is no lytic or blastic lesion. The upper pelvis is not completely included on the image. IMPRESSION: 1. Satisfactory postoperative appearance of the right hip. 2. Grossly normal appearance of the left hip. RPTAT: QQ .Klaus Gould MD, MD Date Time Electronically viewed and signed by .Klaus Gould MD, on 10/23/2016 12:15 .R/
== END | disposition home or self-care (01) ==
LOC: HKI 11:02
PROVIDERS: ATTEND Orthopaedic Surgery
DX: Z47.1 Aftercare following joint replacement surgery (principal); Z96.641 Presence of right artificial hip joint; Z86.19 Personal history of other infectious and parasitic diseases; Z88.6 Allergy status to analgesic agent
CPT/HCPCS: 73502; Z7500; G0463

== ENCOUNTER → 2016-11-22 | Outpatient (CLI) | payer OTHER ==
[~2016-11-22] MED LIST changes: -OXY5 PO; +OXYC-481 PO; +SPIR25TA PO; -SPIR25TA76 PO; +TRAM50TA2 PO; -ULT50 PO
--- NOTE | 2016-11-22 17:48 | RADRPT ---
PROCEDURE: XR pelvis/right hip. CLINICAL INDICATION: Hip pain TECHNIQUE: AP pelvis/lateral right hip view performed. COMPARISON: 10/23/19 17 and 10/12/2016 FINDINGS: There is a right total hip replacement. There is no evidence of loosening of the prosthesis. There i s a probable healing greater trochanter fracture which was present on the study of 10/23/2016 but no t present on the study of 10/12/2016. There is mild left hip osteoarthrosis. This is associated with joint space narrowing, subchondral sc lerosis and osteophytosis. There is normal osseous mineralization. No fractures or osseous lesions are identified. The soft tissues are unremarkable. IMPRESSION: Right total hip replacement. Probable healing greater trochanter fracture. Mild left hip osteoarthrosis. RPTAT: HGDB .Igor Cárdenas MD, Date Time Electronically viewed and signed by .Igor Cárdenas MD, on 11/22/2016 17:48 .B/
== END | disposition home or self-care (01) ==
LOC: HKI 10:35
PROVIDERS: ATTEND Orthopaedic Surgery
DX: Z47.1 Aftercare following joint replacement surgery (principal); M16.11 Unilateral primary osteoarthritis, right hip; Z96.641 Presence of right artificial hip joint
CPT/HCPCS: 73502; Z7500; G0463

== ENCOUNTER → 2017-01-12 | Outpatient (CLI) | payer OTHER ==
--- NOTE | 2017-01-12 13:46 | RADRPT ---
PROCEDURE: XR right hip. CLINICAL INDICATION: Hip pain TECHNIQUE: AP and lateral views available for review. COMPARISON: None available FINDINGS: There is a right total hip replacement. There is no evidence of loosening of the prosthesis. There i s no evidence of hardware failure. There is normal mineralization, architecture and alignment. No f ractures are identified. No osseous lesions are present. The joints are unremarkable. The soft ti ssues are unremarkable. IMPRESSION: Unremarkable right total hip replacement RPTAT: HGDB .Igor Cárdenas MD, MD Date Time Electronically viewed and signed by .Igor Cárdenas MD, on 01/12/2017 13:46 .B/
--- NOTE | 2017-01-12 13:46 | RADRPT ---
PROCEDURE: XR Pelvis. CLINICAL INDICATION: Hip pain TECHNIQUE: Single AP view performed. COMPARISON: 10/12/2016 FINDINGS: There is a right total hip replacement. There is no evidence of loosening of the prosthesis. No hard hall failure is identified. There is mild left hip osteoarthrosis. This is associated with joint space narrowing, subchondral sc lerosis, subchondral cyst formation and osteophytosis. There is normal osseous mineralization. No fractures or osseous lesions are identified. The soft tissues are unremarkable. IMPRESSION: Unremarkable right total hip replacement Mild left hip osteoarthrosis. RPTAT: HGDB .Igor Cárdenas MD, Date Time Electronically viewed and signed by .Igor Cárdenas MD, on 01/12/2017 13:45 .B/
== END | disposition home or self-care (01) ==
LOC: HKI 11:12
PROVIDERS: ATTEND Orthopaedic Surgery
DX: Z47.1 Aftercare following joint replacement surgery (principal); Z96.641 Presence of right artificial hip joint; M16.12 Unilateral primary osteoarthritis, left hip
CPT/HCPCS: 72170; 73502; Z7500; G0463